=== PATIENT | male | born 1940 | race Caucasian/White ===

== ENCOUNTER 2016-07-22 11:27 | Emergency (ER) | payer MEDICARE, OTHER ==
[~2016-07-22] VITALS: Ht 172.7 cm; Wt 72.7 kg
[2016-07-22 11:27] VITALS: BP 139/51; PULSE 118; RESP 18; O2SAT 93
[~2016-07-22 11:27] MED LIST: ASPI-628 PO; CLON0.1T PO; FOSI20TA3 PO; METF500T4 PO; PRAV10TA2 PO
--- NOTE | 2016-07-22 11:57 | ED.REPORT ---
HPI-General Illness Date of Service Jul 22, 2016 ED Provider: Dennys Mitchell DO The patient is a 75 year old male w/ a hx of DM on metformin and HTN who presents to the ED via EMS accompanied by his due to weakness onset this morning. Per his , he going to the bathroom every hour last night and was "completely out of it." He collapsed on the porch this morning and his called EMS. He perked up a little bit after receiving fluids. Associated symptoms are confusion, fever, weakness, chills, shakes, slight discomfort with urination and mild incontinence for the last year. He is tachycardic. Denies cough, sinus pain, congestion, back pain, rashes or sores. He has never had any bladder problems before. His PCP is Dr. Pritchard at [facility]. Nursing Notes Stated Complaint: ALTERED MENTAL STATUS Chief Complaint: General Complaint Nursing Notes Reviewed: Yes Allergies: Coded Allergies: gemfibrozil (Verified Allergy, Severe, 07/17/14) ERECTILE DYS PER H&P Scheduled Aspirin (Aspir 81) 81 Mg Tablet.dr 325 MG PO DAILY Clonidine (Clonidine) 0.1 Mg Tablet 0.2 MG PO HS Metformin (Metformin) 500 Mg Tablet 500 MG PO BIDWM take 500 mg in the am and 1,000 mg at night Pravastatin (Pravastatin) 10 Mg Tablet 10 MG PO HS Sulfamethoxazole/Trimeth 800-160 mg (Bactrim DS) 1 Each Tablet 1 TABLET PO BID Miscellaneous Medications Fosinopril Sodium (Fosinopril Sodium) 20 Mg Tablet 20 MG PO General Time Seen by MD: 11:29 Chief Complaint Weakness Hx Obtained From: Patient Arrived By: Ambulance Sudden in Onset?: Yes Onset Occurred: 1 - 4 hours ago Symptom Duration: Since onset Severity: Current: No pain currently Past Medical History Past Medical History Reports: Diabetes mellitus, Hypertension Past Surgical History denies Smoking History Never Smoker Social History Alcohol Use: 1-3 per week Other Social History: , Local resident Ambulatory Status Independent Review of Systems Full Review of Systems Constitutional: Reports: Chills, Fever, Weakness - generalized Ears / Nose / Throat: Denies: Nasal congestion, Sinus problem Respiratory: Denies: Non-productive cough Male: Reports Dysuria, Reports Incontinence Musculoskeletal: Denies: Back pain Skin: Denies Rash Neurologic: Reports: Shaking Psychiatric: Reports: Confusion Complete sys rev & neg: except as marked. Physical Exam Vital Signs Initial VS: Reviewed Extremities: Vascular intact, Neuro intact, No swelling, No tenderness General/Constitutional: Awake, Alert, No acute distress, Cooperative Head / Eyes: Atraumatic, Normocephalic, PERRL, EOMI Mouth: Positive: Mucous membranes dry Neck: Atraumatic, Supple, No meningismus, Full range of motion Respiratory / Chest: Atraumatic, Breath sounds NL, Breath sounds = bilat, No respiratory distress Cardiovascular: Regular rhythm Heart Rate / Rhythm: Positive: Tachycardia (about 120) Abdomen: Atraumatic, Soft, Non-tender, No guarding, No rebound, No distention Skin: Atraumatic, Color NL Rash / Lesion Notes: skin is warm to touch Interpretation & Diagnostics Lab Results Interpretation Result Diagram: 07/22/16 1210 07/22/16 1210 Test 07/22/16 11:45 07/22/16 12:10 07/22/16 12:45 07/22/16 14:04 Urine Color Yellow (YELLOW) Urine Appearance Hazy (CLEAR,HAZY) Urine pH 5.5 (5.0-8.0) Urine Specific Sheldon 1.020 (1.003-1.035) Urine Protein 30mg/dL (NEG,TRACE) Urine Glucose (UA) 500mg/dL (NEGATIVE) Urine Ketones 40mg/dL (NEGATIVE) Urine Occult Blood Moderate (NEGATIVE) Urine Nitrite Positive (NEGATIVE) Urine Bilirubin Negative (NEGATIVE) Urine Urobilinogen Normalmg/dL (NORMAL) Urine Leukocyte Esterase Trace (NEGATIVE) Urine RBC 3-10/hpf (0-2) Urine WBC 11-50/hpf (0-5) Urine Epithelial Cells Occasional/hpf (NONE-MOD) Urine Crystals None seen (NONE SEEN) Urine Bacteria Moderate/hpf (NONE-FEW) Urine Hyaline Casts None/lpf (NONE) Urine Granular Casts None seen (NONE SEEN) Urine Waxy Casts None seen (NONE SEEN) Urine Red Blood Cell Casts None seen (NONE SEEN) Urine White Blood Cell Casts None seen (NONE SEEN) Urine Mucus Present (None Seen) Urine Trichomonas None seen (NONE SEEN) Urine Yeast None (NONE SEEN) Urinalysis Comment None Urine Culture Reflexed Indicated Hold Urine Received (Received) White Blood Count 9.9th/mm3 (3.8-10.1) Red Blood Count 4.61mil/mm3 (4.40-5.80) Hemoglobin 12.9g/dL (13.8-17.2) Hematocrit 38.7% (41.0-50.0) Mean Corpuscular Volume 83.9fL (81-100) Mean Corpuscular Hemoglobin 28.0pg (27.0-35.0) Mean Corpuscular Hemoglobin Concent 33.3% (32.0-37.0) Red Cell Distribution Width 13.9% (12.3-15.4) Platelet Count 164bil/L (150-400) Neutrophils (%) (Auto) 87.1% (40-74) Lymphocytes (%) (Auto) 6.5% (14-46) Monocytes (%) (Auto) 5.6% (4-12) Eosinophils (%) (Auto) 0.1% (0-5) Basophils (%) (Auto) 0.4% (0-3) Sodium Level 132mEq/L (134-144) Potassium Level 4.3mEq/L (3.5-5.2) Chloride Level 90mEq/L (97-108) Carbon Dioxide Level 18mmol/L (18-29) Blood Urea Nitrogen 21mg/dL (8-27) Creatinine 0.89mg/dL (0.76-1.27) Estimat Glomerular Filtration Rate 89mL/min (>59) Glucose Level 329mg/dL (60-99) Calcium Level 10.4mg/dL (8.5-10.1) Magnesium Level 1.3mg/dL (1.6-2.6) Total Bilirubin 1.0mg/dL (0.0-1.2) Aspartate Amino Transf (AST/SGOT) 24U/L (0-50) Alanine Aminotransferase (ALT/SGPT) 16U/L (0-44) Alkaline Phosphatase 97U/L (25-160) Troponin T < 0.010ug/L (0.0-0.011) Total Protein 7.4g/dL (6.4-8.4) Albumin 4.2g/dL (3.4-5.0) Lactic Acid Level 1.1mmol/L (0.4-2.0) Hold Purple Top Tube Received (Received) Hold Blue Top Tube Received (Received) Hold Red Top Tube Received (Received) Hold Strong Top Tube Received (Received) ECG Interpretation ECG Interpretation: ST depression inverted T waves diffuse leads prolonged QT interval Time: 13:20 Interpreted by: ED physician Rhythm / Conduction: Tachycardia (104) X-Ray Chest Interpretation Chest Xray Interpretation: IMPRESSION: No acute disease Dictated by: Mickey Villarreal M.D. on 07/22/2016 at 13:08 Approved by: Mickey Villarreal M.D. on 07/22/2016 at 13:09 View: Portable Interpretation / Wet Read by: Interpret - Radiologist Re-Eval/Medical Decision Med Decision/Clinical Course 75-year-old male with a history of diabetes and hypertension presents via EMS after becoming very weak this morning and confused. Upon EMS arrival IV fluids were initiated and this seemed to help him feel significantly better, however he did meet criteria for sepsis just with his vitals upon arrival. He is not confused at the time of my evaluation in the ER but is febrile and tachycardic. He was treated with Tylenol and more IV fluids and he continued to feel better to the point where he was feeling at baseline. His urine is consistent with a UTI. He had a bladder scan performed which demonstrated approximately 300 mL's and the bladder the patient was able to urinate 200 mL's after the bladder scan so I do not feel he has significant obstruction to require catheterization. He does not describe any lower urinary tract symptoms prior to last day or 2 so I do not feel that Flomax is necessary. I did consider hospital admission but given the patient's vital signs returned to normal, he is not confused, and he is feeling quite well I chose to discharge him home. Patient and his are in agreement with this plan. He received ceftriaxone IV while in the ER and is discharged home with Bactrim twice daily. I explained to him that his elevated blood sugars despite his usual medicines are related to an infection. He will continue metformin as before. I have instructed him to return should he feel that his symptoms are worsening including dizziness, lightheadedness, worsening weakness, or any other new symptom that was concerning to him. Counseled Regarding: Diagnosis, Lab results, Need for follow-up, When/why to return to ED Discharge & Departure Primary Impression: UTI (urinary tract infection) Urinary tract infection type: site unspecified Hematuria presence: without hematuria Qualified Code: N39.0 - Urinary tract infection, site not specified Additional Impressions: Sepsis Sepsis type: sepsis due to unspecified organism Qualified Code: A41.9 - Sepsis, unspecified organism Hyperglycemia Disposition: Home Discharge Condition All VS Reviewed: Yes Condition: Stable Additional Instructions: You have a urinary tract infection. I am giving you a course of antibiotics, Bactrim twice daily for a week. Drink plenty of fluids and stay well hydrated. Return to the Emergency Department for any new or worsening symptoms including weakness, high fevers or confusion. I hope you feel better soon! Referrals: Bebeto Pritchard MD (PCP) Scribe Attestation Portion of this note were transcribed by Lakia Villa. I, Dr. Mitchell, personally performed the history, physical exam, and medical decision-making: I reviewed and confirmed the accuracy for the information in the transcribed note. Signed by: shalonda Claire, 07/22/16 1300 copies to: Bebeto Pritchard MD, Gary R DO Jul 22, 2016 11:57 Lakia Villa Jul 22, 2016 12:14
[2016-07-22] MEDS ORDERED: 0.9% Sodium Chloride 1,000 ML IV ONE (12:12)
[2016-07-22 12:22] LABS: BASOPHILS % (AUTO) 0.4 % (0-3); EOSINOPHILS % (AUTO) 0.1 % (0-5); MONOCYTES % (AUTO) 5.6 % (4-12); Mean Corpuscular Volume 83.9 fL (81-100); NEUTROPHILS % (AUTO) 87.1 % (40-74); Platelet Count 164 bil/L (150-400)
[2016-07-22 12:35] LABS: TROPONIN T < 0.010 ug/L (0.0-0.011)
[2016-07-22 12:43] LABS: Magnesium 1.3 mg/dL (1.6-2.6)
[2016-07-22] MEDS ORDERED: cefTRIAXone Inj 2,000 MG in Dextrose 5% Minibag Plus 50 ML IV ONE (13:10)
--- NOTE | 2016-07-22 13:10 | DRSVH ---
PROCEDURE: X-RAY CHEST ONE VIEW, PORTABLE ([id number]) INDICATIONS: fever, weakness TECHNIQUE: One view of the chest was acquired. COMPARISON: [facility], CR, XR CHEST 2VW, 04/13/2016, 10:30. FINDINGS: Surgical changes and devices: None. Lungs and pleura: No pleural effusions or pneumothorax. Lungs are clear. Mediastinum: Mediastinal contours appear normal. Heart size is normal. Bones and chest wall: No suspicious bony lesions. Overlying soft tissues appear unremarkable. IMPRESSION: No acute disease Dictated by: Mickey Villarreal M.D. on 07/22/2016 at 13:08 Approved by: Mickey Villarreal M.D. on 07/22/2016 at 13:09
[2016-07-22 14:37] VITALS: BP 104/45; PULSE 96; RESP 15; O2SAT 95
[2016-07-22 14:44] VITALS: BP 110/56
[2016-07-22 15:21] LABS: APPEARANCE,URINE HAZY (CLEAR,HAZY); COLOR,URINE YELLOW (YELLOW); OCCULT BLOOD,URINE MODERATE (NEGATIVE); PH,URINE 5.5 (5.0-8.0); UROBILINOGEN,URINE NORMAL (NORMAL)
[2016-07-22] MEDS ORDERED: SULF1TAB7 PO (15:34)
[2016-07-22 15:58] VITALS: BP 110/56; PULSE 90; RESP 15; O2SAT 95
== END 2016-07-22 16:02 | disposition home or self-care (01) ==
LOC: SED 11:27
DX: N39.0 Urinary tract infection, site not specified (principal); A41.9 Sepsis, unspecified organism; E11.9 Type 2 diabetes mellitus without complications; I10 Essential (primary) hypertension; B96.20 Unspecified Escherichia coli [E. coli] as the cause of diseases classified elsewhere; Z79.82 Long term (current) use of aspirin; Z88.8 Allergy status to other drugs, medicaments and biological substances; Z79.84 Long term (current) use of oral hypoglycemic drugs
CPT/HCPCS: 36415; 51798; 71010; 80053; 81000; 82948; 83605; 83735; 84484; 85025; 87040; 87086; 87088; 87186; 93005; 96365; 99285; J0696; J7030

== ENCOUNTER 2016-08-17 00:07 | Inpatient (IN) | payer MEDICARE, OTHER ==
[~2016-08-17] VITALS: Ht 172.7 cm; Wt 72.8 kg
[2016-08-17] VITALS (13 sets, daily range): BP systolic 75–152; BP diastolic 34–84; PULSE 73–115; RESP 15–24; O2SAT 94–99
[~2016-08-17 00:07] MED LIST changes: +SULF1TAB7 PO
--- NOTE | 2016-08-17 00:41 | ED.REPORT ---
HPI-General Illness Date of Service Aug 17, 2016 ED Provider: Dr. Light. A 75 year old male with a history of HTN and diabetes presents to the ED complaining of fall that occurred earlier this evening. Per , the patient is disoriented and cannot stand without falling over, falling to his right side. He denies hitting his head and he does knows that he is at [facility]. The patient normally keeps well hydrated, but is thirsty now. He denies any nausea, vomiting, chest pain, SOB, abdominal pain, or diarrhea. He reports coming into the ED on 07/22/2016 with similar symptoms. He denies any history of stroke, [place], or Cirrhosis. He quit drinking alcohol in May. Nursing Notes Stated Complaint: DIFFICULTY WALKING,FALLING Chief Complaint: Multiple Trauma/Fall Nursing Notes Reviewed: Yes Allergies: Coded Allergies: gemfibrozil (Verified Allergy, Severe, 07/17/14) ERECTILE DYS PER H&P Scheduled Aspirin (Aspirin) 325 Mg Tablet 325 MG PO DAILY Cinnamon Bark (Cinnamon) 500 Mg Capsule 4 TAB PO DAILY Clonidine (Clonidine) 0.1 Mg Tablet 0.2 MG PO HS Ergocalciferol (Vitamin D2) (Vitamin D2) 2,000 Unit Tablet 2,000 UNIT PO DAILY Metformin HCl (Metformin HCl ER) 1,000 Mg [id number] 1,000 MG PO BID Multivitamin (Multi Vitamin Daily) 1 Each Tablet 1 EACH PO DAILY Pravastatin (Pravastatin) 40 Mg Tablet 40 MG PO DAILY Ubidecarenone (Coq-10) 100 Mg Capsule 100 MG PO BID Scheduled PRN Sildenafil Citrate (Viagra) 100 Mg Tablet 100 MG PO UD PRN PRN ED Miscellaneous Medications Fosinopril Sodium (Fosinopril Sodium) 20 Mg Tablet 20 MG PO General Time Seen by MD: 00:41 Chief Complaint Other (Disoriented) Hx Obtained From: Patient, Spouse Sudden in Onset?: Yes Onset Occurred: 1 - 4 hours ago Recent Healthcare: Recent doctor visit (Patient visited ED on 07/22/2016) Similar Sx Previous: No Past Medical History Past Medical History Denies Hx of [place]. Trey Hx of liver Cirrhosis. Patient visited ED on 07/22/2016. Reports: Diabetes mellitus, GERD, Hypertension, Denies: Stroke Past Surgical History None reported. Smoking History Never Smoker Social History Patient quit drinking alcohol in May, the 6 months before that he decreased his rate of alcohol consumption. Alcohol Use: 1-3 per week Other Social History: , Local resident Ambulatory Status Independent Review of Systems Disoriented. Full Review of Systems Respiratory: Denies: Shortness of breath Cardiovascular: Denies: Chest pain GI: Denies: Abdominal pain, Diarrhea, Nausea, Vomiting Complete sys rev & neg: except as marked. Physical Exam Vital Signs Vital Signs Date Time Temp Pulse Resp B/P Pulse Ox O2 Delivery O2 Flow Rate FiO2 08/17/16 00:58 104 85/36 08/17/16 00:57 103 80/44 08/17/16 00:57 96 78/34 08/17/16 00:34 97 18 87/42 94 Room Air 08/17/16 00:12 36.9 73 15 75/53 94 Room Air Initial VS: Reviewed Neck: Supple, Non-tender, Full range of motion General/Constitutional: Awake, Alert Patient is quite dry. Head / Eyes: Normocephalic, EOMI Face is ok. ENT: Airway patent, Mucous membranes moist Respiratory / Chest: Atraumatic, Breath sounds NL, Breath sounds = bilat, No respiratory distress, No rales, No rhonchi, No wheezing Cardiovascular: Heart rate NL, Regular rhythm, Heart sounds NL, No gallop, No murmurs, No rubs Abdomen: No guarding, No rebound Back: Full range of motion Patient has three distinct abrasions on his back. He has no other trauma. Skin: Warm, Dry Cerebellar is abnormal on right. Patient has marked searching with right finger. Left arm is a little vauge, but it does not go through a big process to find the patient's nose. Interpretation & Diagnostics Lab Results Interpretation Result Diagram: 08/17/16 0100 08/17/16 0301 Test 08/17/16 00:40 08/17/16 00:42 08/17/16 01:00 08/17/16 01:26 D-Dimer 2.58mg/L FEU (<0.50) White Blood Count 12.2th/mm3 (3.8-10.1) Red Blood Count 3.71mil/mm3 (4.40-5.80) Hemoglobin 10.3g/dL (13.8-17.2) Hematocrit 31.1% (41.0-50.0) Mean Corpuscular Volume 83.8fL (81-100) Mean Corpuscular Hemoglobin 27.8pg (27.0-35.0) Mean Corpuscular Hemoglobin Concent 33.1% (32.0-37.0) Red Cell Distribution Width 14.5% (12.3-15.4) Platelet Count 160bil/L (150-400) Neutrophils (%) (Auto) 80.2% (40-74) Lymphocytes (%) (Auto) 3.0% (14-46) Monocytes (%) (Auto) 15.8% (4-12) Eosinophils (%) (Auto) 0% (0-5) Basophils (%) (Auto) 0.3% (0-3) Magnesium Level 1.3mg/dL (1.6-2.6) Total Bilirubin 0.6mg/dL (0.0-1.2) Aspartate Amino Transf (AST/SGOT) 12U/L (0-50) Alanine Aminotransferase (ALT/SGPT) 13U/L (0-44) Alkaline Phosphatase 80U/L (25-160) Total Protein 6.1g/dL (6.4-8.4) Albumin 3.2g/dL (3.4-5.0) Acetaminophen Level < 15.0ug/mL Rx (10-25) Alcohols < 10mg/dL (0-10) Lactic Acid Level 1.6mmol/L (0.4-2.0) Test 08/17/16 03:01 Sodium Level 132mEq/L (134-144) Potassium Level 4.6mEq/L (3.5-5.2) Chloride Level 97mEq/L (97-108) Carbon Dioxide Level 20mmol/L (18-29) Blood Urea Nitrogen 25mg/dL (8-27) Creatinine 1.30mg/dL (0.76-1.27) Estimat Glomerular Filtration Rate 57mL/min (>59) Glucose Level 323mg/dL (60-99) Calcium Level 8.5mg/dL (8.5-10.1) ECG Interpretation ECG Interpretation: Rate is 92. JPC. Time: 01:01 Interpreted by: ED physician X-Ray Chest Interpretation Chest Xray Interpretation: IMPRESSION: No pneumonia. Atelectasis bilaterally at the bases. 08/17/2016, 0120 Interpretation / Wet Read by: Wet read Resident CT Chest Interpretation IMPRESSION: Examination compromised by motion artifact. Linear nonocclusive PE noted in one of the right lower lobe pulmonary arterial branches. Otherwise No acute occlusive PE. Atherosclerotic disease. Other findings above. Signed by Herbert Heller M.D. 08/17/2016 0523 AMENDMENT added by Marissa Heller M.D. at 08/17/2016, 0543. Subtle left anterior 6th and 7th rib fracture suggested. Other subtle chronic-appearing post traumatic change in the right rib cage noted. Case discussed with Dr. Light at 08/17/216, 0541. Interpretation / Wet Read by: Interpret - Radiologist Re-Eval/Medical Decision Med Decision/Clinical Course 75-year-old presents with altered mental status and multiple falls. CT of the cranium is negative, as is his neck. However his sodium is quite low, his blood pressure is persistently low, he is azotemic, and hypomagnesemic. He is moderately dehydrated and clinically dry appearing. A d-dimer is elevated and a CT angios shows a nonocclusive small clot in the lower right, which is clearly not the source of his syncopal episodes. He is admitted for completion of rule out protocol, replenishment of sodium and fluid, and further evaluation as clinical situation develops. Source of Hx: Old records Time of Eval: 00:52 Re-Evaluation/Progress Note: Rechecked patient and brought them water to drink. Consultation : Referral / Consult Name: Gabino Jones MD Consulted With: Hospitalist Call Returned at: 02:51 Ice Handler: Will see patient Note: Discussed patient case with Dr. Jones who will see the patient and accepts patient admit. Counseled Regarding: Diagnosis, Lab results Discharge & Departure Primary Impression: Hyponatremia Additional Impressions: Dehydration Syncope Syncope type: unspecified Qualified Code: R55 - Syncope and collapse Pulmonary embolus Pulmonary embolism type: other Chronicity: acute Acute cor pulmonale presence: without acute cor pulmonale Qualified Code: I26.99 - Other pulmonary embolism without acute cor pulmonale Hypotension Hypotension type: other hypotension type Qualified Code: I95.89 - Other hypotension Disposition: ADMITTED TO HOSPITAL Discharge Condition All VS Reviewed: Yes Condition: Improved Referrals: Bebeto Pritchard MD (PCP) Scribe Attestation Portions of this note were transcribed by Leobardo Taveras. I, Dr. Light personally performed the history, physical exam and medical decision-making; I reviewed and confirmed the accuracy of the information in the transcribed note. Signed by: Nathan Oconnor, 08/17/2016 0643. copies to: Bebeto Pritchard MD, Christopher W MD Aug 17, 2016 00:41 Leobardo Taveras Aug 17, 2016 00:53
[2016-08-17] MEDS ORDERED: 0.9% Sodium Chloride 1,000 ML IV ONE ×2 (00:54→02:20)
[2016-08-17 01:13] LABS: BASOPHILS % (AUTO) 0.3 % (0-3); EOSINOPHILS % (AUTO) 0 % (0-5); MONOCYTES % (AUTO) 15.8 % (4-12); Mean Corpuscular Hemoglobin 27.8 pg (27.0-35.0); Mean Corpuscular Volume 83.8 fL (81-100); NEUTROPHILS % (AUTO) 80.2 % (40-74); Platelet Count 160 bil/L (150-400)
[2016-08-17 01:35] LABS: Magnesium 1.3 mg/dL (1.6-2.6)
[2016-08-17] MEDS ORDERED: 0.9% Sodium Chloride 1,000 ML IV SCH ×2 (02:55→03:20)
[2016-08-17] MEDS ORDERED: Polyethylene Glycol (PEG) 17 Gm Powder PO PRN (02:55)
[2016-08-17] MEDS ORDERED: Ondansetron 2 mg/mL 2 mL Inj IVPUSH PRN (02:55)
[2016-08-17] MEDS ORDERED: Glucose 40% Oral Gel 15 Gm Tube PO PRN ×2 (03:40→10:50)
--- NOTE | 2016-08-17 04:02 | PCM.HPMED ---
Subjective Date of Service Aug 17, 2016 Primary Provider: Admitting Physician: Gabino Jones MD Primary Care Physician: Bebeto Pritchard MD Attending Physician: Gabino Jones MD Admit Status: From the Emergency Department Chief Complaint: Generalized weakness, dizziness, fell this evening, intermittent dysuria, rigors and chills, subjective low-grade fever 100 History of Present Illness: This is a pleasant 75 Y/O M with past medical history of type II diabetes, hypertension, hypercholesterolemia, and history of alcohol but quit May of this year. He presented to the ED complaining of a fall that occurred earlier this evening. Patient's is present in room and is assisting with history. Patient describes generalized weakness, and dizziness that he describes as feeling disoriented and inability to stand without feeling as though he is falling over. Patient fell to his right side, but denied hitting his head. Associated symptoms include intermittent periods of dysuria, increased thirst, chills, rigors, multiple voids up to 20 times throughout the day, subjective low -grade fever of 100F. Of note patient was seen in the the ED on 07/22/2016 with very similar symptoms. At that time he was diagnosed with urinary tract infection and given IV ceftriaxone and discharged home on by mouth Bactrim. He denies any nausea, vomiting, chest pain, SOB, abdominal pain, or diarrhea, constipation, cough, colds, hematuria, hematochezia, melena, history of thyroid disease, allergies, sick contacts. Patient received 4 L IV normal saline in the ED. He was admitted for hypotension resulting in fall and further workup. EKG showed: Normal sinus rhythm with a rate of 92, normal axis, normal LA interval normal QT and QTc interval, no ST segment or T-wave changes, otherwise normal-appearing EKG. CT brain and CT cervical spine pending radiological read Chest x-ray with bilateral area hilar calcifications wet read by this physician Chemistry panel: Sodium 126, potassium 4.5, chloride 88, carbon dioxide 25, BUN 30, creatinine 1.43, baseline creatinine 0.83 on 07/22/2016, glucose 376, magnesium low at 1.3, lactic acid 1.6, hemoglobin A1c ordered and pending Gram: White blood cell count 12.2, neutrophil percent 80.2 with left shift, monocytes 15.8%, hemoglobin/hematocrit 10.3/31.1 Dimer elevated at 2.58 Blood Cultures ordered and pending Review of Systems: A comprehensive review of systems was conducted and was negative except as mentioned in history of present illness. Allergies Coded Allergies: gemfibrozil (Verified Allergy, Severe, 07/17/14) ERECTILE DYS PER H&P Home Medications Aspirin Tablet 325 MG PO DAILY Clonidine (Clonidine) 0.1 Mg Tablet 0.2 MG PO HS Metformin (Metformin) 1000 MG PO BIDWM Pravastatin (Pravastatin) 40 Mg Tablet 40 MG PO HS Fosinopril Sodium (Fosinopril Sodium) 20 Mg Tablet 20 MG PO Januvia 50 mg tablet daily (increased from 25 mg on 08/17/2016) Vitamin D Viagra when necessary PMH Diabetes mellitus, Hypertension, Essential tremor for years Surgical History Vasectomy Family History Mom obesity, coronary artery disease Daughter diabetes mellitus Social History Hx Alcohol Use: Yes (not since first of year 05/2016) Hx Substance Use: No Hx Tobacco Use: No Smoking Status: Never Smoker Living Arrangement: with Family ( is Sweta [phone], cell ) Exam Vital Signs Vital Sign - Last Date Time Temp Pulse Resp B/P Pulse Ox O2 Delivery O2 Flow Rate FiO2 08/17/16 03:30 107/48 08/17/16 00:58 104 08/17/16 00:34 18 94 Room Air 08/17/16 00:12 36.9 Intake and Output 08/16/16 08/16/16 08/17/16 Cumulative From/Thru 15:00 23:00 07:00 08/17/16 00:12 - 08/17/16 03:21 Intake Total 4000 ml 4000 ml Balance 4000 ml 4000 ml Intake IV Total 4000 ml 4000 ml Exam General: Alert and oriented 3, in no acute distress, lying in reverse Trendelenburg in bed, speaking in full sentences HEENT: NC/AT, eyes, PERRLA, EOMI, neck, soft supple, no adenopathy, no JVD, no masses, no thyromegaly, throat mucous membranes pink and dry, no erythema, no exudates, no tonsillar swelling, no uvular deviation. Lungs: CTAB all kim, no wheezes, no rhonchi, no crackles, no adventitious lung sounds, no use of accessory muscles of respiration, good air movement, good respiratory effort. Heart: Regular rate and rhythm, no murmur, S1-S2 present, no rub, no click, no distant heart sounds, Abdomen: Soft, nontender, nondistended, somewhat protuberant, liver edge 2-3 cm below the costal margin, bowel sounds active, no rebound, no guarding, Genitourinary: No CVA tenderness, no suprapubic tenderness, no Gardiner catheter, Extremities: Muscle strength, 5 out of 5 upper/lower extremity and symmetric laterally, pulses equal and symmetric upper/lower extremity including radial and dorsalis pedis, no edema Neurologic: Grossly neurologically intact, speaking in full sentences, no focal neurological signs, [id number], [id number] are normal, Skin: Warm, dry, no rashes Psychiatric: Mood affect are congruent and appropriate. Lab and Diagnostics Result Diagram: 08/17/169908/17/1699 Assessment & Plan This is a pleasant 75-year-old male with past medical history of diabetes and hypertension, and alcohol use up until May of this year who presented with generalized weakness, dizziness and fall with associated increased thirst rigors chills and active fever 100. P patient was found to have hyponatremia and hypochloremia hypomagnesemia elevated d-dimer and a leukocytosis with left shift. Patient was admitted to the hospital for hypertension resulting in a fall for further workup. # Hypotension, present on admission, active - Differential diagnosis includes orthostatic hypotension/dehydration secondary to decreased by mouth intake versus poorly controlled diabetes with osmotic diuresis, medication-induced patient takes clonidine 0.2 mg, patient takes lisinopril 20 mg, cardiac, autonomic dysregulation, toxin induced, sepsis secondary to bacteremia or urinary tract infection, versus GI bleed, - Patient complained of 3-4 week history of generalized weakness, dizziness, intermittent dysuria, increased thirst, history of multiple voids up to 20 times per day, subjective low-grade fever of 100 Fahrenheit. With associated chills and rigors for the past week. - In the ED vital signs: Temperature 36.9, pulse 73, respirations 15, 94% on room air. - Orthostatics: Right arm blood pressure supine 87/42, right arm sitting 80/44, right arm standing 85/36. - Patient received 4 L normal saline in the ED and reported improvement in his symptoms - D-dimer 2.58 - Lactic acid 1.6 - EKG was - Chest x-ray ordered and pending - CT brain ordered and pending - CT cervical spine ordered and pending - CT angiogram chest to rule out PE - We will trend troponin # Acute leukocytosis, present on admission, active - White blood cell count 12.2, with left shift polys 80.2% - Blood Cultures ordered and pending - UA with culture if indicated ordered and pending - We will hold on starting IV antibiotics pending culture results and UA # Anemia, Chronicity unknown, present on admission, active - H/H 10.3/31.1 - We will continue to monitor - Stool guaiac - We will consider iron studies to include ferritin # Hypochloremic hyponatremia, present on admission, active - Sodium 126, chloride 88 - He received 4 L normal saline - We will repeat CMP ordered and pending # Acute kidney injury, present on admission, active -Likely secondary to dehydration, and chronic poorly controlled diabetes resulting osmotic diuresis, polyuria and dehydration - Creatinine 1.43 - Patient's baseline creatinine is 0.83 on 07/22/2016 - IV fluids normal saline as above - We will continue to monitor creatinine level # Dysuria, present on admission, active - She reported having intermittent dysuria - UA/culture if indicated ordered and pending - Patient was recently treated for urinary tract infection 1 month ago in the ED and received a signal dose of ceftriaxone and was discharged on by mouth Bactrim twice a day #Hyperglycemia in a known type II diabetic, present on admission, active - Patient on metformin at home 1000 mg twice a day, will hold metformin for now - Patient takes Januvia 50 mg daily. Medication was recently increased from 25 mg to 50 mg on 08/15/2016 - We will continue to monitor blood glucoses - Hemoglobin A1c ordered and pending - Diabetic diet - We will start low-dose correctional scale insulin while in-house # Hypomagnesemia - Magnesium level I.3 - We will plan to replete Chronic problems: #Hypertension - Patient takes clonidine 0.2 mg daily - Patient is on Fosamax and appropriately milligrams daily - We will plan to hold clonidine for now # Diabetes mellitus type II - Hold metformin - Hold Januvia - Start low-dose correctional scale insulin #Hyperlipidemia - Continue pravastatin 40 mg daily - Continue aspirin 325 mg Disposition: Admitted to in patient service with expected length of stay greater than 2 days, secondary to severity of presenting symptoms, treatment plan, complexity of clinical work up, and risk of adverse events. CODE STATUS: Full code PCP: Dr. Macho Truong [facility] Ronald Joseph DVT PE prophylaxis: Enoxaparin Contact: Sweta(patient's ), - H, Pain Evaluation: Adequate Pain Control VTE Prophylaxis: Sub-Q Enoxaparin Resuscitation Status: CPR: Attempt Resuscitation Attending Statement The patient was seen and examined together with Dr Johansen on 08/17/2016 and I agree with the history, exam and plan as outlined in the note above. Robinson Johansen DO Aug 17, 2016 04:02 Gabino Jones MD Aug 17, 2016 05:22
[2016-08-17] MEDS ORDERED: SILD100T PO (04:31)
[2016-08-17] MEDS ORDERED: MULT-1018 PO (04:31)
[2016-08-17] MEDS ORDERED: ERGO2000 PO (04:31)
[2016-08-17] MEDS ORDERED: PRAV40TA PO (04:31)
[2016-08-17] MEDS ORDERED: UBID100C16 PO (04:31)
[2016-08-17] MEDS ORDERED: ASPI325T32 PO (04:31)
[2016-08-17] MEDS ORDERED: CINN500C14 PO (04:31)
[2016-08-17] MEDS ORDERED: METF-778 PO (04:31)
--- NOTE | 2016-08-17 06:06 | NUR ---
Admission Pt arrived via wheelchair. He was notably tremulous. Difficult to obtain blood pressure of blood sugar due to shaking. Skin mottled Pt stated "he didn't get this bad at home" Breathing labored. HR tach 110. Given warm blankets. Reported above signs to night doctor Temp initally 36.4. Now 37.4 Requested tylenol order at bedside.
[2016-08-17] MEDS ORDERED: Insulin GLARgine 100 Unit/mL Syringe SUBQ ONE (06:15)
--- NOTE | 2016-08-17 07:58 | DRSVH ---
PROCEDURE: CT BRAIN WITHOUT CONTRAST ([id number]) INDICATIONS: falls TECHNIQUE: Noncontrast 4.5 mm thick angled axial sections acquired from the foramen magnum to the vertex, with c oronal reformats. COMPARISON: None. FINDINGS: Image quality: Excellent. CSF spaces: Basal cisterns are patent. No extra-axial fluid collections. The ventricles are symmet robert in size and shape. Brain: No intracranial bleeds or masses. There is mild to moderate cerebral volume loss for age, wi th resultant ventricular and sulcal prominence. There are mild periventricular and deep white matter chronic small vessel ischemic changes. There is intracranial internal carotid artery atherosclerosi s. Skull and face: Calvarium and visualized facial bones appear intact, without suspicious lesions. Sinuses: Visualized sinuses and mastoids are clear. IMPRESSION: 1. No acute intracranial abnormalities. 2. Cerebral volume loss and chronic microvascular ischemic changes. No significant discrepancy with the shift production supervisor radiology preliminary report. Dictated by: Carlie Phan M.D. on 08/17/2016 at 7:56 Approved by: Carlie Phan M.D. on 08/17/2016 at 7:57
[2016-08-17] MEDS ORDERED: Insulin LISPRO 300 Unit/3 mL Inj SUBQ SCH (08:00)
[2016-08-17] MEDS: COENZYME Q10 PO SCH ×2 (08:30→20:30)
--- NOTE | 2016-08-17 08:43 | DRSVH ---
PROCEDURE: X-RAY CHEST ONE VIEW, PORTABLE ([id number]) INDICATIONS: altered ms, falls TECHNIQUE: One view of the chest was acquired. COMPARISON: [facility], CR, XR CHEST 1VW (PORTABLE), 07/22/2016, 12:12. FINDINGS: Surgical changes and devices: None. Lungs and pleura: No pleural effusions or pneumothorax. Lungs are clear. Mediastinum: Mediastinal contours appear normal. Heart size is normal. Bones and chest wall: No suspicious bony lesions. Overlying soft tissues appear unremarkable. IMPRESSION: No acute disease. Dictated by: Mickey Villarreal M.D. on 08/17/2016 at 8:40 Approved by: Mickey Villarreal M.D. on 08/17/2016 at 8:41
--- NOTE | 2016-08-17 09:15 | DRSVH ---
PROCEDURE: CT ANGIO CHEST PULMONARY EMBOLISM ([id number]) INDICATIONS: syncope and elevated dimer TECHNIQUE: After the administration of intravenous contrast, 2 mm thick sections acquired from the pulmonary api velvet to the posterior costophrenic angles. 3-dimensional maximum intensity projection (MIP) coronal a nd sagittal reformats were then acquired through the thorax. For radiation dose reduction, the follo wing was used: automated exposure control, adjustment of mA and/or kV according to patient size. COMPARISON: None. FINDINGS: Image quality: Excellent. Pulmonary arteries: There is a small filling defect in the right posterior basal segmental artery cordoba spicious for a small pulmonary embolus. Pulmonary arteries are normal in size. Lungs and pleura: Lungs are clear. No pleural effusions or pneumothorax. Central and peripheral ai rways are patent. Mediastinum: Heart size is normal, without pericardial effusion. Mildly enlarged paratracheal and AP window lymph nodes are present, measuring up to 1 cm. Thoracic aorta is normal in caliber and enhanc ement. Esophagus is normal in caliber. There is a moderate-sized hiatal hernia. There is possible C oncentric thickening at the gastroesophageal junction. Bones and chest wall: No suspicious bony lesions. Ribs and thoracic spine appear intact throughout. Thyroid gland is normal. No axillary or supraclavicular adenopathy. Abdomen: Visualized upper abdominal solid organs appear normal in the early arterial phase of enhanc ement. IMPRESSION: 1. Possible small pulmonary embolus in the right posterior basal segmental artery. 2. There is a moderate-sized hiatal hernia. There is concentric thickening at the gastroesophageal ju nction. Recommend esophagram or upper endoscopy for further evaluation. 3. Mildly enlarged particularly lymph nodes. This finding is nonspecific and requires clinical corre lation and follow up. Dictated by: Carlie Phan M.D. on 08/17/2016 at 9:03 Approved by: Carlie Phan M.D. on 08/17/2016 at 9:14
--- NOTE | 2016-08-17 09:15 | DRSVH ---
PROCEDURE: US VENOUS LEG DUPLEX BILATERAL INDICATIONS: evaluate for dvt TECHNIQUE: Real-time imaging, as well as color and pulse Doppler interrogation, were performed of the deep veins of both legs from the inguinal ligament to the popliteal fossa. COMPARISON: None. FINDINGS: The deep veins are normally compressible, and free of intraluminal thrombus. Color and pu lse Doppler demonstrate normal phasic intravascular flow. There is normal augmentation response to d istal compression maneuver. IMPRESSION: No DVT film bilaterally over the lower extremities. Dictated by: Geovany Anthony M.D. on 08/17/2016 at 9:13 Approved by: Geovany Anthony M.D. on 08/17/2016 at 9:14
--- NOTE | 2016-08-17 09:20 | NUR ---
Mentation Pt now completely alert and cooperative. Agrees not to try to get OOB w/o assistance. Able to use call light appropriately. Slightly tremulous for am blood sugar check, otherwise steady.
--- NOTE | 2016-08-17 09:22 | DRSVH ---
PROCEDURE: CT CERVICAL SPINE WITHOUT CONTRAST ([id number]) INDICATIONS: 75 year-old man with fall. TECHNIQUE: Noncontrast 3 mm thick sections acquired from the skull base to the T4 level. Sagittal and coronal r eformats were then constructed. For radiation dose reduction, the following was used: automated exp osure control, adjustment of mA and/or kV according to patient size. COMPARISON: None. FINDINGS: Image quality: Excellent. Bones: No fractures or dislocations. Visualized superior ribs are intact. Grade 1 anterolisthesis at C5 over C6 is present. There is mild degenerative disc disease scattered in the cervical spine. Th ere is bilateral facet arthropathy, most severe at C3-C4 and C4-C5 on the right, and C2-C3 and C3-C4 on the left. Soft tissues: Prevertebral soft tissues are normal in thickness. No paravertebral hematomas. No ap ical pneumothoraces. IMPRESSION: 1. No acute traumatic injury to cervical spine. 2. Mild degenerative disc disease and severe bilateral facet arthropathy in cervical spine. No significant discrepancy with the bridge club manager radiology preliminary report. Dictated by: Carlie Phan M.D. on 08/17/2016 at 9:15 Approved by: Carlie Phan M.D. on 08/17/2016 at 9:21
[2016-08-17] MEDS ORDERED: SITA25TA5 PO (09:45)
--- NOTE | 2016-08-17 10:39 | PCM.PNMED ---
Subjective Date of Service Aug 17, 2016 Subjective Overall feels a bit better this AM. Patient blood sugars have been over 300 for over a months with sig poluria and I suspect patient was fluid depleted and on bp med, thus the syncope and low bp. We need to add insulin. Exam Vital Signs Vital Sign - Last Date Time Temp Pulse Resp B/P Pulse Ox O2 Delivery O2 Flow Rate FiO2 08/17/16 09:15 102 08/17/16 05:45 37.4 24 131/81 94 Room Air Intake and Output 08/16/16 08/16/16 08/17/16 Cumulative From/Thru 15:00 23:00 07:00 08/17/16 00:12 - 08/17/16 06:01 Intake Total 4000 ml 4000 ml Output Total 500 ml 500 ml Balance 3500 ml 3500 ml Intake IV Total 4000 ml 4000 ml Output Urine Total 500 ml 500 ml Exam Eyes; aurelia eom intact ENMT; adequate hydration, no lesions CV; S1S2 present, soft systolic murmur Resp; Clear anteriorly GI; Soft, non tender and benign Skin; dry, no rashes Neuro; 2-12 intact, no motor or sensory defects noted Lab and Diagnostics Result Diagram: 08/17/16 0100 08/17/16 0301 Assessment & Plan This is a pleasant 75-year-old male with past medical history of diabetes and hypertension, and alcohol use up until May of this year who presented with generalized weakness, dizziness and fall with associated increased thirst rigors chills and active fever 100. P patient was found to have hyponatremia and hypochloremia hypomagnesemia elevated d-dimer and a leukocytosis with left shift. Patient was admitted to the hospital for hypertension resulting in a fall for further workup. # Hypotension, present on admission, resolved -probable secondary to being on the dry side, secondary to polyuria, and blood pressure meds -control diabetes continue to hold catapress and fosinopril 2. Uncontrolled type 2 diabetes, POA, active -HbA1C pending -increase lantus basal, to 18 HS -increase correction to medium dose -resume metformin and sitagliptin -teaching and education 3. Possible Pulmonary embolism, POA, questionable -reviewed with radiologist, very small peripheral pul artery, motion artifact present, and questionable weather this is a true embolism. -patient has no chest pain, sob -the syncope has another explanation, and a small pe would not cause syncope -check echo -discussed with patient and the plan we came up with is to not treat for now, watch patient, and consider repeat CTA in about a week to recheck # Anemia, Chronicity unknown, present on admission, active - H/H 10.331.1 - We will continue to monitor - Stool guaiac - We will consider iron studies to include ferritin # Acute kidney injury, present on admission, active -Likely secondary to dehydration, and chronic poorly controlled diabetes resulting osmotic diuresis, polyuria and dehydration - Creatinine 1.43 - Patient's baseline creatinine is 0.83 on 07/22/2016 - IV fluids normal saline at 60 per hour for today # Dysuria, present on admission, active - he reported having intermittent dysuria - UA/culture if indicated ordered and pending - Patient was recently treated for urinary tract infection 1 month ago in the ED and received a signal dose of ceftriaxone and was discharged on by mouth Bactrim twice a day # Hypomagnesemia - Magnesium level I.3 - We will plan to replete Chronic problems: #Hypertension -continue to hold clonidine and fosinopril for now #Hyperlipidemia - Continue pravastatin 40 mg daily - Continue aspirin 325 mg Disposition; pcp is Disposition: Admitted to in patient service with expected length of stay greater than 2 days, secondary to severity of presenting symptoms, treatment plan, complexity of clinical work up, and risk of adverse events. CODE STATUS: Full code [facility] prophylaxis: Enoxaparin Contact: Sweta(patient's ), - C, VTE Prophylaxis: Sub-Q Enoxaparin Resuscitation Status: CPR: Attempt Resuscitation Ward Li MD Aug 17, 2016 10:39 Contact: Sweta(patient's ), - R, VTE Prophylaxis: Sub-Q Enoxaparin Resuscitation Status: CPR: Attempt Resuscitation Ward Li MD Aug 17, 2016 10:39
[2016-08-17] MEDS: Insulin LISPRO 300 Unit/3 mL Inj SUBQ SCH ×3 (12:22→22:42)
--- NOTE | 2016-08-17 12:59 | DRSVH ---
PROCEDURE: US RENAL SONOGRAM INDICATIONS: dysuria, renal failure TECHNIQUE: Real-time scanning was performed of the kidneys and bladder, with image documentation. COMPARISON: None. FINDINGS: Kidneys: Kidneys are normal in size. Right kidney measures 13.0 cm long; left kidney measures 11.4 cm long. Right renal cortical thickness is 1.7 cm; left renal cortical thickness is 1.3 cm. Renal c ortical echotexture is normal. No hydronephrosis or nephrolithiasis. No suspicious solid mass lesio ns. Bladder: Pre-void bladder volume is 304 mL. Post-void residual is 173 mL. Pre-void images demonstr ate no intraluminal masses or stones. Miscellaneous: No free pelvic fluid. IMPRESSION: 1. 173 mL postvoid residual of the urinary bladder. 2. Normal ultrasound appearance of kidneys. No renal stone or hydronephrosis. Dictated by: Carlie Phan M.D. on 08/17/2016 at 12:39 Approved by: Carlie Phan M.D. on 08/17/2016 at 12:47
--- NOTE | 2016-08-17 14:09 | NUR ---
Diabetic Education Provided education regarding sliding scale and drawing up insulin. Pt able to use sliding scale w/o difficulty. Also reports that he used to have a dog with diabetes and is familiar with administering insulin. Encouraged pt to self-administer insulin with dinner.
[2016-08-17 14:35] LABS: APPEARANCE,URINE SLIGHTLY CLOUDY (CLEAR,HAZY); COLOR,URINE YELLOW (YELLOW); PH,URINE 5.5 (5.0-8.0)
[2016-08-17 14:36] LABS: OCCULT BLOOD,URINE LARGE (NEGATIVE); UROBILINOGEN,URINE NORMAL (NORMAL)
[2016-08-17] MEDS: Ampicillin-Sulbactam Inj 1,500 MG in 0.9% Sodium Chloride 50 ML IV SCH ×2 (15:25→20:33)
--- NOTE | 2016-08-17 18:02 | NUR ---
insulin education pt, , and this RN reviewed how to draw up and inject appropriate amounts of Insulin using a sliding scale. pt was able to draw up his dinner time dose of insulin and inject himself without too much difficulty. pt has tremors and this made it somewhat more difficult but pt thinks he can manage. states that she feels comfortable giving shots if needed.
--- NOTE | 2016-08-17 20:00 | NUR ---
ISOLATION Nasopharyngeal viral PCR ordered. Per protocol, pt on droplet precautions until resulted. Addendum: 08/18/16 at 0331 by NEIL FREIRE RN Results negative, off precautions.
[2016-08-17] MEDS ORDERED: Insulin GLARgine 100 Unit/mL Syringe SUBQ SCH (21:00)
[2016-08-18] VITALS (8 sets, daily range): BP systolic 130–148; BP diastolic 72–80; PULSE 86–105; RESP 20–24; O2SAT 93–99
[2016-08-18] MEDS: Ampicillin-Sulbactam Inj 1,500 MG in 0.9% Sodium Chloride 50 ML IV SCH (02:36)
[2016-08-18] MEDS: Alum-Mag Hydrox-Simeth 30 mL Suspension PO PRN (05:42)
--- NOTE | 2016-08-18 05:46 | NUR ---
POSITIVE BLOOD CULTURES Gram negative rods, 1/[address] bottles [address] growth[address] Jones notified, Unasyn changed to Zosyn. Ongoing care.
[2016-08-18] MEDS ORDERED: Piperacillin-Tazo 3.375 Gm Inj 3.375 GM in Dextrose 5% Minibag Plus 50 ML IV ONE (06:00)
[2016-08-18] MEDS: Insulin LISPRO 300 Unit/3 mL Inj SUBQ SCH ×4 (08:09→21:03)
[2016-08-18] MEDS: COENZYME Q10 PO SCH ×2 (08:10→20:30)
--- NOTE | 2016-08-18 10:30 | PCM.PNMED ---
Subjective Date of Service Aug 18, 2016 Subjective Feels better, no more fever from yesterday. Dysuria less, no back pain. Eating OK. Exam Vital Signs Vital Sign - Last Date Time Temp Pulse Resp B/P Pulse Ox O2 Delivery O2 Flow Rate FiO2 08/18/16 09:19 37.4 105 24 131/75 99 Room Air Intake and Output 08/17/16 08/17/16 08/18/16 Cumulative From/Thru 15:00 23:00 07:00 08/17/16 00:12 - 08/18/16 06:13 Intake Total 750 ml 1158 ml 1833 ml 7741 ml Output Total 900 ml 1050 ml 2450 ml Balance 750 ml 258 ml 783 ml 5291 ml Intake Oral 760 ml 960 ml 1720 ml IV Total 750 ml 398 ml 873 ml 6021 ml Output Urine Total 900 ml 1050 ml 2450 ml # Voids 3 3 # Bowel Movements 0 0 Exam Eyes; aurelia eom intact ENMT; adequate hydration, no lesions CV; S1S2 present, soft systolic murmur Resp; Clear anteriorly, no CVA tenderness GI; Soft, non tender and benign Skin; dry, no rashes Neuro; 2-12 intact, no motor or sensory defects noted, alert Lab and Diagnostics Result Diagram: 08/17/16 0100 08/17/16 0301 Assessment & Plan This is a pleasant 75-year-old male with past medical history of diabetes and hypertension, and alcohol use up until May of this year who presented with generalized weakness, dizziness and fall with associated increased thirst rigors chills and active fever 100. P patient was found to have hyponatremia and hypochloremia hypomagnesemia elevated d-dimer and a leukocytosis with left shift. Patient was admitted to the hospital for hypertension resulting in a fall for further workup. 1. Hypotension, present on admission, resolved -probable secondary to being on the dry side, secondary to polyuria, UTI, and blood pressure meds, PE, and or [place] 2. Acute UTI with Bacteremia, present on admission, active - he reported having intermittent dysuria - UA/culture showing gram neg rods - BC with gram neg rods - Patient was recently treated for urinary tract infection 1 month ago in the ED and received a signal dose of ceftriaxone and was discharged on by mouth Bactrim twice a day - Zosyn IV wait results of cultures 3. Uncontrolled type 2 diabetes, POA, active -HbA1C pending -increase lantus basal, to 22 HS -increase correction to medium dose -resume metformin and sitagliptin -patient is new to insulin, teaching 3. Probable Pulmonary embolism, POA, active -reviewed with radiologist, very small peripheral pul artery, motion artifact present, and questionable weather this is a true embolism. -patient has no chest pain, sob -echo however is abnormal showing evidence or prior [place] (no history of this), and moderately dilated RV, hypokenetic RV wall, mod pul hypertension, suggesting possible PE -with echo findings and positive d dimmer patient will be treated for acute PE, coumadin and IV heparin 4; Chronic CHF secondary to systolic dysfunction, poa, active -echo with 45-50% ef, secondary to ischemic cardiomyopathy -initiate ara therapy when able 5. Possible recent Myocardial Infarction, poa, active -IV heparin, statin, asa 81 for now -cardiology consult in AM 6. Anemia, Chronicity unknown, present on admission, active - H/H 10.3/31.1 - We will continue to monitor - Stool guaiac - We will consider iron studies to include ferritin 7. Acute kidney injury, present on admission, active -Likely secondary to dehydration, and chronic poorly controlled diabetes resulting osmotic diuresis, polyuria and dehydration - Creatinine 1.3 today - Patient's baseline creatinine is 0.83 on 07/22/2016 - IV fluids normal saline at 60 per hour for today - consider restarting ara tomorrow 8. Hypomagnesemia - repleat mag Chronic problems: 9.Hypertension -continue to hold clonidine and fosinopril for now 10. Hyperlipidemia - Continue pravastatin 40 mg daily - Continue aspirin 325 mg Disposition; pcp is hanh Martins Disposition: Admitted to in patient service with expected length of stay greater than 2 days, secondary to severity of presenting symptoms, treatment plan, complexity of clinical work up, and risk of adverse events. CODE STATUS: Full code PCP: Dr. Macho Truong [facility] Ronald Mccartney DVT PE prophylaxis: Enoxaparin Contact: Sweta(patient's ), - H, VTE Prophylaxis: Sub-Q Enoxaparin Resuscitation Status: CPR: Attempt Resuscitation Ward Li MD Aug 18, 2016 10:29
[2016-08-18] MEDS: Piper-Tazo 3.375 Gm/50 mL D5W Minibag Plus - Q8H over 4 hrs IV SCH ×4 (14:13→21:46)
--- NOTE | 2016-08-18 14:39 | NUR ---
Social Work-initial assessment: Data: See initial assessment. Pt is a 75 y/o male who was admitted on 08/17/16 for Hypertension, Hyponatremia and Syncope per H&P. Pt's insurance is [employer] and PCP is Garry at [facility]. EMR Reviewed. Pt's readmission score is 3-high risk. SW met with pt andt pt's spouse/DPOA Sweta Cifuentes to discuss discharge planning, SW role explained and Initial Assessment complete. Pt is alert and oriented x3. Pt resides at home with in a mobile home with a ramp to enter where pt remains independent with basic ADLs. Pt has access to a walker and WC if needed. Patient does drive. Pt has no HH or SNF history. Pt has completed DPOA/ advanced directive and a copy is on file. 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 Patient reported that he is 52% service [facility]. No discharge needs identified at this time. Pt's family to provide transport home at discharge. SW provided phone number and plan on white board in room. SW will continue to follow. Plan: Anticipated discharge home via POV when medically ready. No discharge needs identified at this time. SW to continue to follow if any needs arise. Mp Reyes LMSW, BEENA Addendum: 08/18/16 at 1502 by MP REYES SS Amended: Links added.
--- NOTE | 2016-08-18 16:36 | DRSVH ---
[facility] [address] [address] Echocardiogram Report Name: NIDIA PICKETT RStudy Date : 08/18/2016 Height: 68 in Hospital Exam Location: [facility] Weight: 168 lb Gender: Male BSA: 1.9 m2 : 1940 Age: 75 yrs BP: 148/80 mmHg Reason For Study: FAINTING, WEAKNESS Ordering Physician: HOSPITALIST [facility] Performed By: Miguel Younger Referring Physician: Johnna GO Interpretation Summary The left ventricle is normal in size. The ejection fraction is estimated to be 45-50%. There appears to be severe hypokinesis to akinesis of inferior wall, base to mid septum, distal anterolateral and base to mid posterolateral wall. The right ventricle is moderately dilated. Right ventricular systolic function is mild to moderately reduced. The right ventricular free wall is severely hypokinetic. There is mild to moderate tricuspid regurgitation. The right ventricular systolic pressure is estimated at 58 mmHg assuming a right atrial pressure of 15 mm Hg. There is moderate pulmonary hypertension. Procedure: A two-dimensional transthoracic echocardiogram with color flow and Doppler was performed. The study quality was technically good. There is no prior echocardiogram noted for this patient. The patient was in normal sinus rhythm during the exam. Left Ventricle: The left ventricle is normal in size. There is normal left ventricular wall thickness. There is no thrombus. The ejection fraction is estimated to be 45-50%. There appears to be severe hypokinesis to akinesis of inferior wall, base to mid septum, distal anterolateral and base to mid posterolateral wall. Spectral Doppler of the mitral valve is reversed, with an E/A wave ratio < 1.0. Right Ventricle: The right ventricle is moderately dilated. A calcified moderator band is seen in the right ventricle. Right ventricular systolic function is mild to moderately reduced. The right ventricular free wall is severely hypokinetic. Atria: The left atrium is moderately dilated. The right atrium is mildly dilated. The interatrial septum is intact with no evidence for an atrial septal defect. Mitral Valve: There is systolic anterior motion of the chordal apparatus. The mitral valve chordae are thickened and/or calcified. There is mild mitral annular calcification. There is mild mitral regurgitation. Aortic Valve: The aortic valve is trileaflet. The aortic valve is mildly calcified. The aortic valve opens well. There is no aortic valve stenosis. No aortic regurgitation is present. Tricuspid Valve: The tricuspid valve leaflets are thickened and/or calcified, but open well. There is mild to moderate tricuspid regurgitation. The right ventricular systolic pressure is estimated at 58 mmHg assuming a right atrial pressure of 15 mm Hg. There is moderate pulmonary hypertension. Pulmonic Valve: The pulmonic valve is not well seen, but is grossly normal. There is trace pulmonic regurgitation. Great Vessels: The aortic root is normal size. The dimensions of the ascending aorta are normal. The pulmonary artery is normal size. The IVC is dilated (diameter is greater than 2.1 cm) and it collapses less than 50% with a sniff. This suggests a high right atrial pressure of 15 mm Hg. Pericardium/ Pleura There is a trivial pericardial effusion noted. There are no echocardiographic indications of cardiac tamponade. There is no pleural effusion. MMode/2D Measurements & Calculations LVIDd: 4.3 cmLA dimension: 3.5 cm RA long axis: 4.7 cm Ao root diam LVIDs: 3.4 cm FS: 20.4 % LA A2 area: 23.7 cm RA area: 19.5 cm Aortic Jxn: 2.7 cm EPSS: 0.71 cmLA A4 area: 22.9 cm RA vol: 68.1 ml asc Aorta Diam IVSd: 0.85 cmLA length (vol) RA : 35.9 ml/m2 LVPWd Ao Arch Diam (Prox : 0.7cm LA vol: 79.1 ml Trans): 2.9 cm LA vol index IVC diam: 2.2 cm EDV(MOD-sp2) LV owens. diameter/BSA LV sys. diameter/BSA RVD1 (basal) (cm/m^2): 2.3 (cm/m^2): 1.8 : 4.0 cm RVD2 (mid) : 3.8 cm Doppler Measurements & Calculations Ao V2 max MV E max sanjiv MV E/A: 0.68 TR max sanjiv : 157.1 cm/sec : 60.7 cm/sec Med Peak E' Sanjiv : 326.0 cm/sec Ao max PG MV A max sanjiv TR max P.5 mmHg : 9.9 mmHg : 89.5 cm/sec E/E' med: 12.2 PA V2 max: 82.6 cm/sec Ao mean PG Lat Peak E' Sanjiv PA mean P.5 mmHg : 5.9 mmHg PA Accel Time: 0.11 sec E/E' lat: 15.4 E/e' average Pulm A Revs Dur MV A dur: 0.11 sec MV dec time Ao V2 mean PA V2 mean Pulm A Revs Dur - MV A : 0.20 sec : 116.9 cm/sec : 58.3 cm/sec Dur: -0.03 msec Ao V2 VTI PA pr(Accel) : 27.9 cm : 29.1 mmHg Reading Physician:COLIN
[2016-08-18] MEDS ORDERED: Heparin 5,000 Unit/mL Inj IVPUSH ONE (17:15)
[2016-08-18] MEDS: Heparin 25K Unit/500mL 0.45 NS 25,000 UNIT in IV Premix 1 EACH IV SCH (18:12)
--- NOTE | 2016-08-18 18:31 | NUR ---
Heparin Infusion: Cardiac heparin infusion orders clarified w/Dr Li. Heparin PTT drawn for baseline. Heparin bolus 4550u administered, Heparin infusion started at 1000u/hr (20mls/hr). Next Heparin PTT @ 2315 08/18.
[2016-08-18] MEDS ORDERED: Insulin GLARgine 100 Unit/mL Syringe SUBQ SCH ×2 (21:00)
[2016-08-18] MEDS: Insulin GLARgine 100 Unit/mL Syringe SUBQ SCH (21:04)
[2016-08-19] VITALS (8 sets, daily range): BP systolic 127–155; BP diastolic 77–86; PULSE 74–105; RESP 20; O2SAT 93–97
[2016-08-19] MEDS: Heparin 5,000 Unit/mL Inj IVPUSH PRN ×4 (00:32→18:04)
--- NOTE | 2016-08-19 03:09 | NUR ---
ACTIVITY Pt has been ambulating SBA with minimal assistance well. BPs have been 150s-130s/80s, HR continues to be 90s-low 100s. Carlos alarm is no longer on as pt understands to call before getting up, uses call light appropriately. Pt denies dizziness at any time. Hourly rounding.
[2016-08-19 05:31] LABS: BASOPHILS % (AUTO) 0.4 % (0-3); EOSINOPHILS % (AUTO) 0.4 % (0-5); MONOCYTES % (AUTO) 12.9 % (4-12); Mean Corpuscular Hemoglobin 27.9 pg (27.0-35.0); Mean Corpuscular Volume 84.7 fL (81-100); NEUTROPHILS % (AUTO) 79.4 % (40-74); Platelet Count 147 bil/L (150-400)
[2016-08-19] MEDS: Piper-Tazo 3.375 Gm/50 mL D5W Minibag Plus - Q8H over 4 hrs IV SCH ×2 (05:35)
--- NOTE | 2016-08-19 07:57 | PCM.PNMED ---
Subjective Date of Service Aug 19, 2016 Subjective Uneventfull night. No further fever. Dysuria better. Ambulating and eating well. Exam Vital Signs Vital Sign - Last Date Time Temp Pulse Resp B/P Pulse Ox O2 Delivery O2 Flow Rate FiO2 08/19/16 06:29 93 08/19/16 05:02 37.6 20 143/78 93 Room Air Intake and Output 08/18/16 08/18/16 08/19/16 Cumulative From/Thru 15:00 23:00 07:00 08/17/16 00:12 - 08/19/16 05:41 Intake Total 876 ml 328 ml 8945 ml Output Total 400 ml 2850 ml Balance 476 ml 328 ml 6095 ml Intake Oral 876 ml 2596 ml IV Total 328 ml 6349 ml Output Urine Total 400 ml 2850 ml # Voids 6 9 # Bowel Movements 1 1 Exam Eyes; aurelia eom intact ENMT; adequate hydration, no lesions, no bruit CV; S1S2 present, soft systolic murmur, no gallop, no edema Resp; Clear anteriorly, no CVA tenderness GI; Soft, non tender and benign Skin; dry, no rashes Neuro; 2-12 intact, no motor or sensory defects noted, alert Lab and Diagnostics Result Diagram: 08/19/1651608/19/16516 Assessment & Plan This is a pleasant 75-year-old male with past medical history of diabetes and hypertension, and alcohol use up until May of this year who presented with generalized weakness, dizziness and fall with associated increased thirst rigors chills and active fever 100. P patient was found to have hyponatremia and hypochloremia hypomagnesemia elevated d-dimer and a leukocytosis with left shift. Patient was admitted to the hospital for hypertension resulting in a fall for further workup. 1. Hypotension, present on admission, resolved -probable secondary to being on the dry side, secondary to polyuria, UTI, and blood pressure meds, PE, and or [place] 2. Acute UTI with Bacteremia, present on admission, active - he reported having intermittent dysuria - UA/culture showing e coli, resistent to Unisyn - BC with gram neg rods - Patient was recently treated for urinary tract infection 1 month ago in the ED and received a signal dose of ceftriaxone and was discharged on by mouth Bactrim twice a day - due to resistence of urine bug to unisyn and past use of ceftriaxone and bactrim priotr to coming to hospital will change Zosyn to Cefepime 3. Uncontrolled type 2 diabetes, POA, active -HbA1C pending -increase lantus basal, to 22 HS -increase correction to medium dose -resume metformin and sitagliptin -patient is new to insulin, teaching 3. Probable Pulmonary embolism, POA, active -reviewed with radiologist, very small peripheral pul artery, motion artifact present, and questionable weather this is a true embolism. -patient has no chest pain, sob -echo however is abnormal showing evidence or prior [place] (no history of this), and moderately dilated RV, hypokenetic RV wall, mod pul hypertension, suggesting possible PE -with echo findings and positive d dimmer patient will be treated for acute PE, coumadin and IV heparin (await coumadin until seen by Cards) 4; Chronic CHF secondary to systolic dysfunction, poa, active -echo with 45-50% ef, secondary to ischemic cardiomyopathy -start lisinopril 2,5 tomorrow -cardiology consultation 5. Possible recent Myocardial Infarction, poa, active -IV heparin, statin, asa 81 for now -cardiology consult 6. Anemia, Chronicity unknown, present on admission, stable - H/H 10.3/31.1 - We will continue to monitor - Stool guaiac - We will consider iron studies to include ferritin 7. Acute kidney injury, present on admission, resolved -Likely secondary to dehydration, and chronic poorly controlled diabetes resulting osmotic diuresis, polyuria and dehydration - Creatinine .84 today - Patient's baseline creatinine is 0.83 on 07/22/2016 - IV fluids normal saline at 60 per hour for today - consider restarting ara tomorrow 8. Hypomagnesemia - repleat mag Chronic problems: 9.Hypertension -continue to hold clonidine and fosinopril for now 10. Hyperlipidemia - Continue pravastatin 40 mg daily - Continue aspirin 325 mg Disposition; pcp is hanh Martins Disposition: Admitted to in patient service with expected length of stay greater than 2 days, secondary to severity of presenting symptoms, treatment plan, complexity of clinical work up, and risk of adverse events. CODE STATUS: Full code PCP: Dr. Macho Truong [facility] Ronald Mccartney DVT PE prophylaxis: Enoxaparin Contact: Swtea(patient's ), - H, VTE Prophylaxis: Sub-Q Enoxaparin Resuscitation Status: CPR: Attempt Resuscitation Ward Li MD Aug 19, 2016 07:57
[2016-08-19] MEDS: COENZYME Q10 PO SCH ×2 (08:02→20:30)
[2016-08-19] MEDS: Insulin LISPRO 300 Unit/3 mL Inj SUBQ SCH ×4 (08:02→20:37)
[2016-08-19] MEDS ORDERED: 0.9% Sodium Chloride 250 ML ONE (10:29)
[2016-08-19] MEDS: Cefepime Inj 1,000 MG in Dextrose 5% Minibag Plus 50 ML IV SCH ×2 (10:36→20:24)
--- NOTE | 2016-08-19 11:03 | NUR ---
[facility] signed
--- NOTE | 2016-08-19 12:12 | NUR ---
Heparin Infusion: 1115 Heparin PTT result 34.6. 5000u bolus administered and increased infusion to 1500u/hr (30mls/hr). Next Heparin PTT @ 1715. Addendum: 08/19/16 at 1808 by ALESHIA STUART RN 1715 Heparin PTT 36.6. 3000u bolus administered and increased infusion to 1600u/hr (32mml/hr). Next Heparin PTT @2315.
--- NOTE | 2016-08-19 12:41 | PCM.CHPCAR ---
Consult Subjective Date of service Aug 19, 2016 Date of admit Aug 17, 2016 at 03:18 Provider Requesting Consult Requesting Provider: Ward Li MD Primary Care Physician Primary Care Physician: Bebeto Pritchard MD Chief Complaint Troponin elevation History of Present Illness 75 yo M with history of poorly controlled diabetes, hypertension, hyperlipidemia , and prior alcohol abuse admitted with UTI and bacteremia. Patient states that he was in his usual state of health until about a month ago when he started feeling weakness and lightheadedness. He came to our emergency room for evaluation and was diagnosed with UTI and discharged with antibiotics about a month ago. He felt better with antibiotics but not back to his normal self. He continues to have subjective fevers, chills, nausea, and fatigue. Over the past week or so, his fatigue and worse and he started having confusion. He was brought back to our emergency room where he was diagnosed with hypotension from UTI. He received IV fluids and antibiotics and feels much better but not back to his baseline yet. As part of the evaluation, his troponins were checked and they were in the equivocal range. He had an echocardiogram done that showed mildly reduced systolic function with multiple wall motion abnormalities. On history today, patient denies having chest pain today or over the past month. He denies having chest pain ever in his life. Denies dyspnea, palpitations, or heart racing sensations. Review of Systems Review of Systems Per history of present illness and otherwise unremarkable PMH Past Medical History # Diabetes: poorly controlled # HTN # HLD # Alcohol abuse: quit 05/2016 Bedside Blood Glucose: 239 Scheduled Aspirin (Aspirin) 325 Mg Tablet 325 MG PO DAILY (Reported) Cinnamon Bark (Cinnamon) 500 Mg Capsule 2 TAB PO BID (Reported) Clonidine (Clonidine) 0.1 Mg Tablet 0.2 MG PO HS (Reported) Ergocalciferol (Vitamin D2) (Vitamin D2) 2,000 Unit Tablet 2,000 UNIT PO DAILY ( Reported) Fosinopril Sodium (Fosinopril Sodium) 20 Mg Tablet 20 MG PO DAILY (Reported) Metformin HCl (Metformin HCl ER) 1,000 Mg [id number] 1,000 MG PO BID (Reported) Multivitamin (Multi Vitamin Daily) 1 Each Tablet 1 EACH PO DAILY (Reported) Pravastatin (Pravastatin) 40 Mg Tablet 40 MG PO DAILY (Reported) Sitagliptin Phos (Januvia) 25 Mg Tablet 50 MG PO DAILY (Reported) Ubidecarenone (Coq-10) 100 Mg Capsule 100 MG PO BID (Reported) Scheduled PRN Sildenafil Citrate (Viagra) 100 Mg Tablet 100 MG PO UD PRN PRN ED (Reported) Discontinued Medications Aspirin (Aspir 81) 81 Mg Tablet.dr 325 MG PO DAILY (Reported) Metformin (Metformin) 500 Mg Tablet 500 MG PO BIDWM (Reported) take 500 mg in the am and 1,000 mg at night Pravastatin (Pravastatin) 10 Mg Tablet 10 MG PO HS (Reported) Sulfamethoxazole/Trimeth 800-160 mg (Bactrim DS) 1 Each Tablet 1 TABLET PO BID Current Inpatient Medications Current Medications Insulin Glargine 10 unit HS SUBQ; Start 08/17/16 at 21:00; Stop 08/17/16 at 21:00 ; Status DC Insulin Glargine 10 unit HS SUBQ; Start 08/18/16 at 21:00; Stop 08/18/16 at 21:00 ; Status DC Insulin Glargine 18 unit HS SUBQ; Start 08/18/16 at 21:00; Stop 08/18/16 at 21:00 ; Status DC Enoxaparin Sodium 40 mg DAILY SUBQ Last administered on 08/18/16 08:10; Admin Dose 40 MG; Start 08/18/16 at 08:30; Stop 08/18/16 at 17:20; Status DC Metformin HCl 1,000 mg BIDWM PO; Start 08/18/16 at 08:00; Stop 08/18/16 at 08:00; Status DC Sitagliptin Phosphate 50 mg 50 mg DAILY PO Last administered on 08/19/16 08:01; Admin Dose 50 MG; Start 08/18/16 at 08:30 Ampicillin Sodium/ Sulbactam Sodium/ Sodium Chloride 50 ml @ 100 mls/hr Q6 IV Last administered on 08/18/16 02:36; Admin Dose 100 MLS/HR; Start 08/17/16 at 15: 25; Stop 08/18/16 at 05:44; Status DC Melatonin 2 mg 2 mg HS PRN PO Last administered on 08/18/16 21:46; Admin Dose 2 MG; Start 08/18/16 at 04:20 Piperacillin Sod/ Tazobactam Sod/ Dextrose/Water 50 ml @ 12.5 mls/hr Q8H IV Last administered on 08/19/16 05:35; Admin Dose 12.5 MLS/HR; Start 08/18/16 at 14 :00; Stop 08/19/16 at 08:01; Status DC Insulin Glargine 22 unit HS SUBQ Last administered on 08/18/16 21:04; Admin Dose 22 UNIT; Start 08/18/16 at 21:00 Aspirin 81 mg DAILY PO; Start 08/19/16 at 08:30; Stop 08/19/16 at 08:30; Status DC Heparin Sodium (Porcine) Per Protocol for a... PRN PRN IVPUSH Last administered on 08/19/16 06:14; Admin Dose 3,000 UNIT; Start 08/18/16 at 17:15 Lisinopril 2.5 mg 2.5 mg DAILY PO Last administered on 08/19/16 08:22; Admin Dose 2.5 MG; Start 08/19/16 at 08:30 Cefepime HCl/ Dextrose/Water 50 ml @ 12.5 mls/hr Q12 IV Last administered on 10:36; Admin Dose 12.5 MLS/HR; Start 08/19/16 at 08:30 Aspirin 81 mg DAILY PO Last administered on 08/19/16 08:10; Admin Dose 81 MG; Start 08/19/16 at 08:30 Allergies: Coded Allergies: gemfibrozil (Verified Allergy, Severe, 07/17/14) ERECTILE DYS PER H&P Family History Family History Son is healthy. No family history of early heart disease. Social History Hx Alcohol Use: Yes (none since May 2016)Hx Substance Use: NoHx Tobacco Use: No Smoking Status: Never Smoker Living Arrangement: with Family Exam Vital Signs Vital Sign - Last Date Time Temp Pulse Resp B/P Pulse Ox O2 Delivery O2 Flow Rate FiO2 08/19/16 09:22 37.1 98 20 127/77 96 Room Air Intake and Output 08/18/16 08/18/16 08/19/16 Cumulative From/Thru 15:00 23:00 07:00 08/17/16 00:12 - 08/19/16 05:41 Intake Total 876 ml 328 ml 8945 ml Output Total 400 ml 2850 ml Balance 476 ml 328 ml 6095 ml Intake Oral 876 ml 2596 ml IV Total 328 ml 6349 ml Output Urine Total 400 ml 2850 ml # Voids 6 9 # Bowel Movements 1 1 General appearance: No apparent distress, elderly, pleasant, cooperative HEET: Normocephalic atraumatic, no scleral icterus, tongue midline, mucous membranes moist Neck: supple Cardiovascular: RRR, normal S1 and normal S2, no murmurs/ rubs/gallops, PMI nondisplaced, no JVD, no peripheral edema Respiratory: Good aeration, CTAB Abdomen: Soft, nontender, obese, + bowel sounds Neuro: Alert, no facial droop, tongue midline, no gross motor deficits Psych: appropriate affect Skin: no rashes on face, neck, and lower extremities Lab and Diagnostics Result Diagram: 08/19/1651608/19/16516 X-Rays, CTs and MRIs Echo 08/18/2016: The left ventricle is normal in size. The ejection fraction is estimated to be 45-50%. There appears to be severe hypokinesis to akinesis of inferior wall, base to mid septum, distal anterolateral and base to mid posterolateral wall. The right ventricle is moderately dilated. Right ventricular systolic function is mild to moderately reduced. The right ventricular free wall is severely hypokinetic. There is mild to moderate tricuspid regurgitation. The right ventricular systolic pressure is estimated at 58 mmHg assuming a right atrial pressure of 15 mm Hg. There is moderate pulmonary hypertension. 12-lead ECG ECG on admission shows sinus rhythm with no obvious Q waves and no ST changes. Assessment & Plan Assessment 75 yo M with history of poorly controlled diabetes, hypertension, hyperlipidemia , and prior alcohol abuse admitted with UTI, GNR bacteremia, and hypotension. Cardiology consulted for troponin elevation and new wall motion abnormalities on echo. # Hypotension: She has hypotension on presentation was likely due to sepsis physiology based on gram-negative rods in the blood, which are likely from the pocket and UTI. His hypotension is resolved. He is feeling better with antibiotics. - Defer management to primary team for management of infection. # Troponin elevation: likely from SIRS/sepsis. He has no clinical symptoms to suggest acute coronary syndrome. His ECG is unremarkable for any Q waves or significant ST changes. The wall motion abnormalities noted on the echo could be from the acute illness or represent prior non-Q wave infarction. Patient has significant risk factors for coronary artery disease, including poorly controlled diabetes, hypertension, hyperlipidemia, and age > 45. I spent significant time educating the patient and his family about his condition and answered his questions. I recommended that patient recovered from his acute illness and we consider him for stress test as outpatient. There is no need to do invasive coronary angiography at this time. Recommendations as below: - Continue aspirin 81mg daily - Switch from pravastatin to atorvastatin 40mg qhs per ACC-AHA lipid guidelines - No need for heparin gtt from cardiac standpoint - No need for cardiac cath/angiography at this time - Will do stress test as outpatient when I see the patient in cardiology clinic # Diabetes: Patient control of his diabetes has been poor as outpatient. Will defer inpatient management to primary team but consider endocrinology consult as outpatient for optimal diabetes management. # HTN: BP well controlled. - Defer to primary team for management. # HLD: statin as above # Alcohol abuse: Patient congratulated on successful alcohol abstinence since . Thank you for the interesting consultation. Cardiology will sign off time. Please arrange for cardiology follow-up in 4-6 weeks. Pain Evaluation: Adequate Pain Control VTE Prophylaxis: Sub-Q Enoxaparin Resuscitation Status: CPR: Attempt Resuscitation Sergo Owens MD Aug 19, 2016 12:41
[2016-08-19] MEDS: Heparin 25K Unit/500mL 0.45 NS 25,000 UNIT in IV Premix 1 EACH IV SCH (15:50)
--- NOTE | 2016-08-19 17:13 | NUR ---
Temperature: Patient temp 37.8C orally. Tylenol previously administered for head/neck ache. Ice packs applied to neck. Will follow. Addendum: 08/19/16 at 1717 by ALESHIA STUART RN MD hardik tejada. Addendum: 08/19/16 at 1809 by ALESHIA STUART RN Recheck of Temperature 37.1.
[2016-08-19] MEDS: Alum-Mag Hydrox-Simeth 30 mL Suspension PO PRN (20:36)
[2016-08-19] MEDS: Insulin GLARgine 100 Unit/mL Syringe SUBQ SCH (20:38)
[2016-08-20] VITALS (9 sets, daily range): BP systolic 137–174; BP diastolic 71–87; PULSE 81–95; RESP 18–20; O2SAT 95–98
[2016-08-20] MEDS: Heparin 5,000 Unit/mL Inj IVPUSH PRN ×4 (00:26→17:48)
--- NOTE | 2016-08-20 04:31 | NUR ---
Temperature Patient temp 99.8F at bedtime. patient awoke at 0400 c/o sweating, blood sugar 200. Temperature 98F. patient given wash rag per request. will continue to monitor. Heparin gtt infusing per protocol.
[2016-08-20 05:38] LABS: BASOPHILS % (AUTO) 0.4 % (0-3); EOSINOPHILS % (AUTO) 0.9 % (0-5); MONOCYTES % (AUTO) 11.3 % (4-12); Mean Corpuscular Hemoglobin 27.8 pg (27.0-35.0); Mean Corpuscular Volume 84.7 fL (81-100); NEUTROPHILS % (AUTO) 76.1 % (40-74); Platelet Count 171 bil/L (150-400)
[2016-08-20] MEDS: Heparin 25K Unit/500mL 0.45 NS 25,000 UNIT in IV Premix 1 EACH IV SCH ×2 (07:36→21:56)
--- NOTE | 2016-08-20 08:07 | PCM.PNMED ---
Subjective Date of Service Aug 20, 2016 Subjective Resting comfortable in bed, no problems overnight. No chest pain. Blood sugars are still over 200 consistently. Little low grade fever. Exam Vital Signs Vital Sign - Last Date Time Temp Pulse Resp B/P Pulse Ox O2 Delivery O2 Flow Rate FiO2 08/20/16 07:01 91 18 152/80 98 Room Air 08/20/16 04:34 36.8 Intake and Output 08/19/16 08/19/16 08/20/16 Cumulative From/Thru 15:00 23:00 07:00 08/17/16 00:12 - 08/19/16 22:22 Intake Total 400 ml 721 ml 07932 ml Output Total 800 ml 300 ml 3950 ml Balance -400 ml 421 ml 6116 ml Intake Oral 400 ml 236 ml 3232 ml IV Total 485 ml 6834 ml Output Urine Total 800 ml 300 ml 3950 ml # Voids 1 10 # Bowel Movements 0 1 2 Exam Eyes; aurelia eom intact ENMT; adequate hydration, no lesions, no bruit CV; S1S2 present, soft systolic murmur, no gallop, no edema, no JVD Resp; Clear anteriorly, no CVA tenderness GI; Soft, non tender and benign Skin; dry, no rashes Neuro; 2-12 intact, no motor or sensory defects noted, alert Lab and Diagnostics Result Diagram: 08/20/1644908/20/16449 Assessment & Plan This is a pleasant 75-year-old male with past medical history of diabetes and hypertension, and alcohol use up until May of this year who presented with generalized weakness, dizziness and fall with associated increased thirst rigors chills and active fever 100. P patient was found to have hyponatremia and hypochloremia hypomagnesemia elevated d-dimer and a leukocytosis with left shift. Patient was admitted to the hospital for hypertension resulting in a fall for further workup. 1. Sever Sepsis poa, resolved -temp 38.3, rr 24, pulse >90, WBC 12.2,,, -confusion and encephalopathy secondary to sepsis 2. Hypotension, present on admission, resolved -probable secondary to being on the dry side, secondary to polyuria, UTI, and blood pressure meds, PE, and or [place] 3. Acute UTI with Bacteremia, present on admission, active - he reported having intermittent dysuria - UA/culture showing e coli, resistent to Unisyn - BC with gram neg rods - Patient was recently treated for urinary tract infection 1 month ago in the ED and received a signal dose of ceftriaxone and was discharged on by mouth Bactrim twice a day - due to resistence of urine bug to unisyn and past use of ceftriaxone and bactrim priotr to coming to hospital will change Zosyn to Cefepime -day zosyn = 11/17 and 11/18 -day cefepime = 11/18 to 4. Uncontrolled type 2 diabetes, POA, active -HbA1C pending -increase lantus basal, to 22 HS -increase correction to medium dose -add nutritional insulin, 2-4-4 -resume metformin and sitagliptin -patient is new to insulin, teaching 5. Probable Pulmonary embolism, POA, active -reviewed with radiologist, very small peripheral pul artery, motion artifact present, and questionable weather this is a true embolism. -patient has no chest pain, sob -echo however is abnormal showing evidence or prior [place] (no history of this), and moderately dilated RV, hypokenetic RV wall, mod pul hypertension, suggesting possible PE -with echo findings and positive d dimmer patient will be treated for acute PE, coumadin and IV heparin (await coumadin until seen by Cards) -start coumadin today, plan on 3 month treatment 6; Chronic CHF secondary to systolic dysfunction, poa, active -echo with 45-50% ef, secondary to ischemic cardiomyopathy -cardiology consultation -in discussion with [employer] e business consultant he want me not to use an ara at this time as EF > 40%, but to add a b-tomás (toprol XL 25 qd) 7. Possible recent Myocardial Infarction, poa, active -lipitor 40, asa 81, add metop succ 25 daily today -follow up with Card out patient, Dr Owens, with plan for stress test in a few weeks 8. Anemia, Chronicity unknown, present on admission, stable - H/H 10.3/31.1 - We will continue to monitor - Stool guaiac - We will consider iron studies to include ferritin 9. Acute kidney injury, present on admission, resolved -Likely secondary to dehydration, and chronic poorly controlled diabetes resulting osmotic diuresis, polyuria and dehydration - Creatinine .84 today - Patient's baseline creatinine is 0.83 on 07/22/2016 - IV fluids normal saline at 60 per hour for today - consider restarting ara tomorrow 10. Hypomagnesemia - repleat mag Chronic problems: 11.Hypertension -d/c ara and clonidine for now, start toprol XL, add ara back on if needed gfor BP 12. Hyperlipidemia - change to lipitor 40 - Continue aspirin at 81 mg daily Disposition; pcp is Sunni Martins Disposition: Admitted to in patient service with expected length of stay greater than 2 days, secondary to severity of presenting symptoms, treatment plan, complexity of clinical work up, and risk of adverse events. CODE STATUS: Full code PCP: Dr. Macho Truong [facility] Ronald Mccartney DVT PE prophylaxis: Enoxaparin Contact: Sweta(patient's ), - L, VTE Prophylaxis: Sub-Q Enoxaparin Resuscitation Status: CPR: Attempt Resuscitation Ward Li MD Aug 20, 2016 08:07
[2016-08-20] MEDS: COENZYME Q10 PO SCH (08:30)
[2016-08-20] MEDS: Insulin LISPRO 300 Unit/3 mL Inj SUBQ SCH ×4 (08:45→21:10)
[2016-08-20] MEDS: Cefepime Inj 1,000 MG in Dextrose 5% Minibag Plus 50 ML IV SCH ×2 (08:46→20:59)
[2016-08-20] MEDS: MeTOProlol XL 25 mg ER24 Tablet PO SCH (08:47)
[2016-08-20 09:51] LABS: INR 1.04 ratio
--- NOTE | 2016-08-20 10:53 | PCM.PHAPRO ---
Progress Troponin elevation Indication: PE Home Dose: NEW START Date:08/20 INR 1.04 Dose:OT 5MG CONCURRENT: HEPARIN DRIP GOAL INR: 2-3 Pharmacy will continue to follow daily. Thank you for consulting pharmacy in the care of this patient. Bob Hahn Pharm.D Aug 20, 2016 10:53
--- NOTE | 2016-08-20 15:11 | NUR ---
Coumadin Provided by pharmacy. Pt stable and remains on heparin. No complaints. Family at bedside for teaching.
[2016-08-20 17:49] LABS: Creatine Kinase 38 U/L (21-232)
[2016-08-20] MEDS: Insulin GLARgine 100 Unit/mL Syringe SUBQ SCH (21:10)
[2016-08-21] VITALS (9 sets, daily range): BP systolic 104–158; BP diastolic 50–86; PULSE 73–89; RESP 17–20; O2SAT 96–99
[2016-08-21] MEDS: Heparin 5,000 Unit/mL Inj IVPUSH PRN ×3 (00:49→19:53)
[2016-08-21 05:33] LABS: INR 1.04 ratio
--- NOTE | 2016-08-21 06:25 | NUR ---
Neck/Shoulder Pain Pt complains of neck and shoulder pain. Administered Tylenol PRN. Has been on cardiac heparin drip, last PTT is 57.5 per heparin protocol increased by 25units/hour. Now on 2075Units/hour. HS meds administered as scheduled. Insulin administered per sliding scale. VSS and pt has been afebrile overnight.
[2016-08-21] MEDS: Insulin LISPRO 300 Unit/3 mL Inj SUBQ SCH ×4 (07:36→21:25)
[2016-08-21] MEDS: Cefepime Inj 1,000 MG in Dextrose 5% Minibag Plus 50 ML IV SCH ×2 (07:43→20:31)
[2016-08-21] MEDS: MeTOProlol XL 25 mg ER24 Tablet PO SCH (07:43)
--- NOTE | 2016-08-21 08:27 | NUR ---
low blood glucose pts morning BG was 78, he was asymptomatic, gave pt glass of apple juice, rechecked BG 20 minutes later and it was 123
--- NOTE | 2016-08-21 09:15 | NUR ---
FRANCISCO JAVIER signed. CHAPIN Ram
--- NOTE | 2016-08-21 11:00 | NUR ---
heparin drip pt has been on cardiac heparin protocol instead of DVT protocol for a PE since initial order was placed. Notified Dr Blue and he stated that he was fine keeping the pt on the cardiac protocol even though the pt has a PE and would make a notation in his progress note about it.
[2016-08-21] MEDS: Heparin 25K Unit/500mL 0.45 NS 25,000 UNIT in IV Premix 1 EACH IV SCH ×2 (11:09→22:44)
--- NOTE | 2016-08-21 12:25 | NUR ---
heparin drip PTT was 44.5 increased from 2075 to 2125un/hr and gave 1000unit bolus per protocol. Double verified with Alex Mcclain
--- NOTE | 2016-08-21 13:22 | PCM.PNMED ---
Subjective Date of Service Aug 21, 2016 Subjective +Improving, no problems overnight. Blood sugars bit low this AM, will reduce the Lantus. Patient and wif learning about insulin, coumadin. Exam Vital Signs Vital Sign - Last Date Time Temp Pulse Resp B/P Pulse Ox O2 Delivery O2 Flow Rate FiO2 08/21/16 09:38 36.4 80 20 134/66 97 Room Air Intake and Output 08/20/16 08/20/16 08/21/16 Cumulative From/Thru 15:00 23:00 07:00 08/17/16 00:12 - 08/21/16 06:19 Intake Total 1000 ml 1100 ml 2675 ml 84224 ml Output Total 1375 ml 450 ml 1450 ml 7225 ml Balance -375 ml 650 ml 1225 ml 7616 ml Intake Oral 1000 ml 1100 ml 600 ml 5932 ml IV Total 2075 ml 8909 ml Output Urine Total 1375 ml 450 ml 1450 ml 7225 ml # Voids 1 11 # Bowel Movements 0 1 1 4 Exam Eyes; aurelia eom intact ENMT; adequate hydration, no lesions, no bruit CV; S1S2 present, soft systolic murmur, no gallop, no edema, no JVD Resp; Clear anteriorly, no CVA tenderness GI; Soft, non tender and benign Skin; dry, no rashes Neuro; 2-12 intact, no motor or sensory defects noted, alert, cooperative Lab and Diagnostics Result Diagram: 08/20/16 0450 08/20/16 0450 Assessment & Plan This is a pleasant 75-year-old male with past medical history of diabetes and hypertension, and alcohol use up until May of this year who presented with generalized weakness, dizziness and fall with associated increased thirst rigors chills and active fever 100. P patient was found to have hyponatremia and hypochloremia hypomagnesemia elevated d-dimer and a leukocytosis with left shift. Patient was admitted to the hospital for hypertension resulting in a fall for further workup. 1. Sever Sepsis poa, resolved -temp 38.3, rr 24, pulse >90, WBC 12.2,,, -confusion and encephalopathy secondary to sepsis 2. Hypotension, present on admission, resolved -probable secondary to being on the dry side, secondary to polyuria, UTI, and blood pressure meds, PE, and or [place] 3. Acute UTI with Bacteremia, present on admission, improving -he reported having intermittent dysuria -UA/culture showing e coli, resistent to Unisyn -BC with gram neg rods -Patient was recently treated for urinary tract infection 1 month ago in the ED and received a signal dose of ceftriaxone and was discharged on by mouth Bactrim twice a day -due to resistence of urine bug to unisyn and past use of ceftriaxone and bactrim prior to coming to hospital will change Zosyn to Cefepime -day zosyn = / and 11/18 -day cefepime = start 11/18 Day#3 consider 3 more days Cefepime 4. Uncontrolled type 2 diabetes, POA, improving -HbA1C pending -Basal insulin; Lantus, reduce to 18 change to dinner time (pharmacy will put in order for lantus with dinner as computer program will not let me enter this order) -correction insulin; humalog change ot low dose correction scale -nutritional insulin; increase to 2 ac am, 5 ac lunch, and 5 ac dinner 2-4-4 -resume metformin and sitagliptin -patient is new to insulin, teaching -recommend to discharge on basal/bolus dosing as above to get good glycemic control, then see a diabetic doctor to adjust regime to some easier in the near future 5. Possible Pulmonary embolism, POA, active -reviewed with radiologist, very small peripheral pul artery, motion artifact present, and questionable weather this is a true embolism. 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 Possible recent Myocardial Infarction, poa, active -lipitor 40, asa 81, add metop succ 25 daily today -follow up with Card out patient, Dr Owens, with plan for stress test in a few weeks 8. Anemia, Chronicity unknown, present on admission, stable - H/H 10.3/31.1 - We will continue to monitor - Stool guaiac - We will consider iron studies to include ferritin 9. Acute kidney injury, present on admission, resolved -Likely secondary to dehydration, and chronic poorly controlled diabetes resulting osmotic diuresis, polyuria and dehydration - Creatinine .84 today - Patient's baseline creatinine is 0.83 on 07/22/2016 - IV fluids normal saline at 60 per hour for today - consider restarting ara tomorrow 10. Hypomagnesemia - repleat mag Chronic problems: 11.Hypertension -d/c ara and clonidine for now, start toprol XL, add ara back on if needed gfor BP 12. Hyperlipidemia - change to lipitor 40 - Continue aspirin at 81 mg daily Disposition; pcp is Sunni Martins Disposition: Admitted to in patient service with expected length of stay greater than 2 days, secondary to severity of presenting symptoms, treatment plan, complexity of clinical work up, and risk of adverse events. CODE STATUS: Full code PCP: Dr. Macho Truong [facility] Ronald Mccartney DVT PE prophylaxis: Enoxaparin Contact: Sweta(patient's ), - H, VTE Prophylaxis: Sub-Q Enoxaparin Resuscitation Status: CPR: Attempt Resuscitation Ward Li MD Aug 21, 2016 13:22
[2016-08-21] MEDS ORDERED: Insulin GLARgine 100 Unit/mL Syringe SUBQ SCH (13:25)
--- NOTE | 2016-08-21 15:00 | NUR ---
Patient care: Aquired patient care at 1445. Patient is not having pain . He is on Heparin drip running at 42.5ml/2125u hourly. Per Dr Oscar patient was changed to DVT heparin drip from Cardiac heparin drip. His next PTT draw is at 1800.
--- NOTE | 2016-08-21 15:40 | NUR ---
Social Work - Continued Discharge Planning Data: EMR reviewed. Pt is on day 4 of hospitalization for hypotension/hyponatremia/syncope per H&P. Pt is not yet medically cleared for discharge and will likely be here 2-3 more days per morning rounds. SW met with pt and Sweta at bedside to check in and confirm discharge plan home via . No further discharge needs assessed at this time. SW will continue to follow for needs. Assessment: Pt who is independent at baseline. Plan: Pt to discharge home via POV when medically stable. No further discharge needs assessed at this time. SW will continue to follow for needs. CHAPIN Ram
[2016-08-21] MEDS: Insulin GLARgine 100 Unit/mL Syringe SUBQ SCH (17:20)
[2016-08-22] VITALS (7 sets, daily range): BP systolic 134–168; BP diastolic 77–91; PULSE 68–78; RESP 18; O2SAT 96–99
--- NOTE | 2016-08-22 02:39 | NUR ---
PTT Heparin Pt is currently on 30.5units/kg/hr. With a PTT of 71.3. Next PTT Heparin draw will be @0500. No signs of bleeding. Educate pt about risk of bleeding when brushing and flossing. Pt states understanding. Will continue to monitor.
[2016-08-22 06:06] LABS: INR 1.06 ratio
[2016-08-22] MEDS: Heparin 5,000 Unit/mL Inj IVPUSH PRN (07:01)
[2016-08-22] MEDS: Insulin LISPRO 300 Unit/3 mL Inj SUBQ SCH ×4 (08:00→21:32)
[2016-08-22] MEDS: MeTOProlol XL 25 mg ER24 Tablet PO SCH (08:19)
[2016-08-22] MEDS: Cefepime Inj 1,000 MG in Dextrose 5% Minibag Plus 50 ML IV SCH (08:22)
[2016-08-22 08:39] LABS: Mean Corpuscular Hemoglobin 27.7 pg (27.0-35.0); Mean Corpuscular Volume 86.9 fL (81-100); Platelet Count 311 bil/L (150-400)
[2016-08-22 08:49] LABS: Magnesium 2.1 mg/dL (1.6-2.6)
[2016-08-22 09:35] LABS: BASOPHILS % (AUTO) 1 % (0-3); EOSINOPHILS % (AUTO) 2 % (0-5); MONOCYTES % (AUTO) 9 % (4-12); NEUTROPHILS % (AUTO) 75 % (40-74)
[2016-08-22] MEDS: Heparin 25K Unit/500mL 0.45 NS 25,000 UNIT in IV Premix 1 EACH IV SCH ×4 (12:06→23:51)
--- NOTE | 2016-08-22 12:59 | PCM.PHAPRO ---
Progress Troponin elevation WARFARIN DOSING PER PHARMACY (day) 1 2 3 RPh RTM NTV DFF Date -Aug 21-Aug 22-Aug INR 1.04 1.04 1.06 INR change 0.02 Warf Dose 5 5 5 Plan: Day three of warfarin initiation. No significant change in INR. Will continue warfarin 5mg tonight with possible dose increase tomorrow if INR doesn' t make significant gains. Ric Gill,PharmD Ric Gill Aug 22, 2016 12:59
--- NOTE | 2016-08-22 15:46 | PCM.PNMED ---
Subjective Date of Service Aug 22, 2016 Subjective denies any new issues/complaints Exam Vital Signs Vital Sign - Last Date Time Temp Pulse Resp B/P Pulse Ox O2 Delivery O2 Flow Rate FiO2 08/22/16 14:33 36.7 78 18 141/91 98 Room Air Intake and Output 08/21/16 08/21/16 08/22/16 Cumulative From/Thru 15:00 23:00 07:00 08/17/16 00:12 - 08/22/16 06:50 Intake Total 1954 ml 1405 ml 19247 ml Output Total 1350 ml 1940 ml 87558 ml Balance 604 ml -535 ml 7685 ml Intake Oral 1954 ml 800 ml 8686 ml IV Total 605 ml 9514 ml Output Urine Total 1350 ml 1940 ml 80398 ml # Voids 11 # Bowel Movements 2 1 7 General: Alert, Cooperative, No Acute Distress Eyes: Scleral Anicteric Mouth: Mucous Membr Moist/[place] Neck: Supple Chest & Lungs: Chest Wall Normal, Clear to auscultation & percussion Cardiovascular: Regular Rate/Rhythm Abdomen: Non-tender, Non-distended, Normoactive bowel tones, Soft Extremities: No cyanosis/clubbing/edma bilat Neurological: Grossly Neurologically Intact, Normal Speech IVs and Medications Medications Reviewed: Medications were reviewed in detail Lab and Diagnostics Result Diagram: 08/22/1652908/22/16529 Assessment & Plan 75-year-old male with past medical history of diabetes and hypertension, and alcohol use up until May of this year who presented with generalized weakness, dizziness and fall with associated increased thirst rigors chills and active fever 100. Patient was found to have hyponatremia and hypochloremia hypomagnesemia elevated d-dimer and a leukocytosis with left shift. Patient was admitted to the hospital for hypertension resulting in a fall for further workup. # Acute Sever Sepsis, source UTI and bacteremia, poa, resolved -temp 38.3, rr 24, pulse >90, WBC 12.2 -confusion and encephalopathy secondary to sepsis, poa. resolved # Hypotension, present on admission, resolved -probable secondary to being on the dry side, secondary to polyuria, UTI, and blood pressure meds, PE, and or [place] # Acute E. Coli UTI with Bacteremia, present on admission, improving -he reported having intermittent dysuria -Patient was recently treated for urinary tract infection 1 month ago in the ED and received a signal dose of ceftriaxone and was discharged on by mouth Bactrim twice a day -due to resistence of urine bug to unisyn and past use of ceftriaxone and bactrim prior to coming to hospital Abx changed from Zosyn to Cefepime -ID consulted today for further recs on Abx choice and duration. will f/u w/ recs # Chronic type 2 diabetes, POA, poorly controlled as outpatient. improving -HbA1C 10.1 -Basal insulin; Lantus, reduce to 18 change to dinner time (pharmacy will put in order for lantus with dinner as computer program will not let me enter this order) -correction insulin; humalog change ot low dose correction scale -nutritional insulin; increase to 2 ac am, 5 ac lunch, and 5 ac dinner 2-4-4 -c/w home dose metformin and sitagliptin -patient is new to insulin, teaching -recommend to discharge on basal/bolus dosing as above to get good glycemic control, then see a diabetic doctor to adjust regime to some easier in the near future # Possible Acute Pulmonary embolism, POA, active -patient has no chest pain, sob -echo however is abnormal showing evidence or prior [place] (no history of this), and moderately dilated RV, hypokenetic RV wall, mod pul hypertension, suggesting possible PE -with echo findings and positive d cristóbalmer decision was made to treat for acute PE -c/w heparin to Coumadin bridging (to be adjusted by pharmacy) -f/u daily INR (goal 2-3) -plan on 3 month treatment, then change to asa # Chronic CHF secondary to systolic dysfunction, poa, active -echo with 45-50% ef, secondary to ischemic cardiomyopathy -appreciate cardiology consult. will f/u w/ recs -per earlier notes by Dr. Blue: "in discussion with [employer] spa consultant he want me not to use an ara at this time as EF > 40%, but to add a b-tomás ( toprol XL 25 qd)" # Possible recent Myocardial Infarction, poa, active -lipitor 40, asa 81, add metop succ 25 daily today -follow up with Card out patient, Dr Owens, with plan for stress test in a few weeks # Anemia, Chronicity unknown, present on admission, stable - We will continue to monitor # Acute kidney injury, present on admission, resolved -Likely secondary to dehydration, and chronic poorly controlled diabetes resulting osmotic diuresis, polyuria and dehydration # Acute Hypomagnesemia. poa. resolved. # Hypertension -d/c ara and clonidine for now, start toprol XL, add ara back on if needed gfor BP # Hyperlipidemia - change to lipitor 40 - Continue aspirin at 81 mg daily Dispo: 2-3 days VTE Prophylaxis: Sub-Q Enoxaparin Resuscitation Status: CPR: Attempt Resuscitation Time spent 37 min Mg uDke Aug 22, 2016 15:46 PCP: Dr. Macho Truong [facility] Ronald Mccartney DVT PE prophylaxis: Enoxaparin Contact: Sweta(patient's ), - h, VTE Prophylaxis: Sub-Q Enoxaparin Resuscitation Status: CPR: Attempt Resuscitation Mg Duke Aug 22, 2016 15:46
[2016-08-22] MEDS ORDERED: cefTRIAXone Inj 2,000 MG in Dextrose 5% Minibag Plus 50 ML IV ONE (17:50)
[2016-08-22] MEDS: Insulin GLARgine 100 Unit/mL Syringe SUBQ SCH (18:25)
--- NOTE | 2016-08-22 19:40 | NUR ---
Heparin drip PTT @ 1100, 60.2. at 1735 PTT 71.6. No change to rate. Continues at 48.1 ml hr.
--- NOTE | 2016-08-22 22:12 | CONS ---
[address] [address] CONSULTATION REPORT PATIENT: NIDIA PICKETT : 1940 MR#: [id number] ADMIT: 08/17/2016 JOB ID: [id number] DATE OF SERVICE: 08/22/[address] Duke for this timely consult. REASON FOR CONSULTATION: Septic shock secondary to E. coli bacteremia due to E. coli complicated urinary tract infection. HISTORY OF PRESENT ILLNESS: The patient is a 75-year-old, retired [employer] man who suffers from diabetes, hypertension and a history of heavy alcohol use. He was seen and evaluated at this facility in July with what appeared to be a complicated urinary tract infection. He was managed with a dose of ceftriaxone and then a one-week course of oral Septra at home after an ED visit and seemed to do well until August 16, when he developed weakness and a fall. He was then brought to the emergency department and subsequently admitted with a story of generalized weakness, dizziness, and the fall, during which he did not strike his head. He noted that he had a relapse of his urinary symptoms, however, at about the same time, which was very similar to what happened in July but more severe in that he had dysuria, urgency, frequency, fevers, chills, rigors and malaise. He notes that these symptoms have come back in the weeks following the completion of the course of oral Bactrim. There was no associated pulmonary or GI symptoms at the time of his presentation to the ED on August 16 and his admission at that time. Following evaluation in the ED, the patient was noted to have an elevated white count as well as pyuria and was admitted to the hospital after appropriate cultures were done. He was started on Unasyn but then switched to Zosyn when his blood and urine cultures grew gram-negative rods which eventually proved to be resistant to Unasyn. Subsequently, he has been switched to cefepime, which he is currently receiving. The patient reports that with these antibiotics and hydration and better management of his diabetes. He has improved considerably and his dysuria, urgency, frequency, and fevers are subsiding. ID consultation is requested regarding appropriate management. PAST MEDICAL HISTORY: 1. Diabetes mellitus. 2. Hypertension. 3. Essential tremor. 4. Hyperlipidemia. FAMILY HISTORY: Positive for coronary artery disease and diabetes. SOCIAL HISTORY: The patient quit drinking several months ago. He is a lifelong nonsmoker and lives with his in the local area. During his time in the he served in diverse locations including [facility] and locations in [place] as well as [place] and [place]. REVIEW OF SYSTEMS: Was done. The patient has no headache, visual change, sore throat, cough, chest pain, shortness of breath, nausea, vomiting, or diarrhea. His dysuria, urgency and frequency are improving. He has had no more periods of dizziness or syncope. He denies focal neurologic complaint. Remainder of the review of systems is negative. PHYSICAL EXAMINATION: Reveals an afebrile gentleman, temperature 36.7, pulse 78, respiratory rate 18, blood pressure 141/91. He is saturating well on room air. Note that when he first came in though his temperatures was as high as 39.3. Also note that when he was first admitted. He had a series of blood pressures with systolic pressures below 90, and at one point, his systolic pressure was only 75, consistent with septic shock. Examination of the head: No trauma. No temporal wasting. Eyes without conjunctivitis. No scleral icterus. Oral cavity without thrush, hairy leukoplakia. Neck: Supple. No JVD or adenopathy. Lungs clear to auscultation. Cardiac exam: Regular rate and rhythm without murmur. Abdomen soft and nontender. No flank tenderness today. She does not have a [place]. Does not have suprapubic tenderness. Joints without synovitis. No significant peripheral edema. He has excellent peripheral pulses in his feet and his feet his hands are well perfused. There is no significant peripheral edema. The patient is neurologically intact though he does have his essential tremor. LABORATORIES: Include white count 12,000 when he came in with mild left shift, now down to 9500. Creatinine 0.79. Procalcitonin was 2.21 when he came in. Most recently, 0.5 two days ago. Urinalysis was packed with white cells when he was admitted. Micro studies include blood cultures, two of eight bottles positive for an E coli and urine also grew the same E. Coli. This organism is resistant to cefazolin, Unasyn and ampicillin but sensitive to everything else including ceftriaxone, Cipro, and Bactrim. IMAGING: Includes retroperitoneal ultrasound, which is normal. No stones or hydroureter or hydropelvis was seen. A CT angio of the chest showed possible small pulmonary embolism. Chest x-ray is clear. IMPRESSION: This gentleman presented in July of this year with what appeared to be a complicated urinary tract infection which was appropriately treated with a single dose of ceftriaxone followed by Bactrim. After improving the patient then relapsed and presents this time with septic shock secondary to his complicated urinary tract infection with E. coli. Interestingly, the E. coli is actually sensitive to the Bactrim he received previously raising a question as to why this treatment failed. I suspected that it failed because of some structural abnormality which needs to be evaluated in this gentleman who has now had two serious complicated urinary tract infections, one with sepsis, in the past month or so. RECOMMENDATIONS: 1. We can discontinue the cefepime the patient is currently receiving as it is unnecessary for this standard E. coli. 2. The patient will be given a single dose of ceftriaxone for the transition to oral therapy. 3. Will go ahead and start the patient on Cipro 500 mg p.o. b.i.d. 4. Will go ahead and start the patient on Cipro 500 mg p.o. b.i.d. with the intention of going about 10 days starting this evening and going through September 01. 5. The patient needs to have urologic evaluation, either as an inpatient or shortly after discharge as an outpatient. He has had two fairly severe urinary tract infections, and this one could be considered life-threatening, and there is likely an underlying structural problem such as benign prostatic hypertrophy or some other related issue. Thank you very much this consult. We will see the patient again tomorrow.
[2016-08-23] VITALS (9 sets, daily range): BP systolic 112–169; BP diastolic 68–82; PULSE 66–91; RESP 20; O2SAT 95–99
--- NOTE | 2016-08-23 07:29 | NUR ---
NOC/Heparin Drip Pt denies chest pain, sob, n/v or abd discomfort. Complains of mild leg pain, relieve with tylenol. Heparin drip running on 30.5units/kg/hr. Next draw will be 1100. HS meds administered as scheduled, Blood sugar checks and insulin administered as per sliding scale. ABx Rocephine administered. Hourly rounding done and pt has slept most of the night
[2016-08-23 07:45] LABS: INR 1.31 ratio
[2016-08-23] MEDS: Insulin LISPRO 300 Unit/3 mL Inj SUBQ SCH ×4 (08:00→22:00)
[2016-08-23] MEDS: MeTOProlol XL 25 mg ER24 Tablet PO SCH (10:08)
--- NOTE | 2016-08-23 11:55 | NUR ---
[facility] signed @ [id number]
[2016-08-23] MEDS: Heparin 25K Unit/500mL 0.45 NS 25,000 UNIT in IV Premix 1 EACH IV SCH ×4 (11:58→23:24)
--- NOTE | 2016-08-23 15:37 | PCM.PHAPRO ---
Progress Troponin elevation WARFARIN DOSING PER PHARMACY [facility] RTM NTV DFF DFF Date 8-Aug 21-Aug 22-Aug 23-Aug INR 1.04 1.04 1.06 1.31 INR change 0.02 0.25 Warf Dose 5 5 5 5 INR uptrending but still subtherapeutic after 3 doses of warfarin. Will continue warfarin 5mg as we are seeing an uptrend on schedule with typical warfarin new starts. If trend changes tomorrow, will consider dose change. Ric Gill Aug 23, 2016 15:37
--- NOTE | 2016-08-23 16:18 | PCM.PNMED ---
Subjective Date of Service Aug 23, 2016 Subjective denies any new issues/complaints Exam Vital Signs Vital Sign - Last Date Time Temp Pulse Resp B/P Pulse Ox O2 Delivery O2 Flow Rate FiO2 08/23/16 11:22 71 08/23/16 10:35 Intake and Output 08/22/16 08/22/16 08/23/16 Cumulative From/Thru 15:00 23:00 07:00 08/17/16 00:12 - 08/23/16 06:58 Intake Total 1369 ml 645 ml 92517 ml Output Total 1250 ml 09063 ml Balance 119 ml 645 ml 8449 ml Intake Oral 1036 ml 9722 ml IV Total 333 ml 645 ml 77698 ml Output Urine Total 1250 ml 96711 ml # Voids 11 # Bowel Movements 1 8 Exam General: Alert, Cooperative, No Acute Distress Eyes: Scleral Anicteric Mouth: Mucous Membr Moist/[place] Neck: Supple Chest & Lungs: Chest Wall Normal, Clear to auscultation bilat Cardiovascular: Regular Rate/Rhythm Abdomen: Non-tender, Non-distended, Normoactive bowel tones, Soft Extremities: No cyanosis/clubbing/edema bilat Neurological: Grossly Neurologically Intact, Normal Speech IVs and Medications Medications Reviewed: Medications were reviewed in detail Lab and Diagnostics Result Diagram: 08/23/1651708/22/16529 Assessment & Plan 75-year-old male with past medical history of diabetes and hypertension, and alcohol use up until May of this year who presented with generalized weakness, dizziness and fall with associated increased thirst rigors chills and active fever 100. Patient was found to have hyponatremia and hypochloremia hypomagnesemia elevated d-dimer and a leukocytosis with left shift. Patient was admitted to the hospital for hypertension resulting in a fall for further workup. # Possible Acute Pulmonary embolism, POA, active -patient has no chest pain, sob -echo however is abnormal showing evidence or prior [place] (no history of this), and moderately dilated RV, hypokenetic RV wall, mod pul hypertension, suggesting possible PE -with echo findings and positive d dimmer decision was made to treat for acute PE -c/w heparin to Coumadin bridging (to be adjusted by pharmacy) -f/u daily INR (goal 2-3) -plan on 3 month treatment, then change to asa # Acute E. Coli UTI with Bacteremia, present on admission, improving -he reported having intermittent dysuria -Patient was recently treated for urinary tract infection 1 month ago in the ED and received a signal dose of ceftriaxone and was discharged on by mouth Bactrim twice a day -due to resistance of urine bug to Unasyn and past use of ceftriaxone and Bactrim prior to coming to hospital Abx changed from Zosyn to Cefepime -appreciate ID consult. will f/u w/ recs -Cipro 500 mg p.o. b.i.d. with the intention of going about 10 days starting this evening and going through September 01. -urology consult followup as outpatient # Acute Sever Sepsis, source UTI and bacteremia, poa, resolved -temp 38.3, rr 24, pulse >90, WBC 12.2 -confusion and encephalopathy secondary to sepsis, poa. resolved # Hypotension, present on admission, resolved -probable secondary to being on the dry side, secondary to polyuria, UTI, and blood pressure meds, PE, and or [place] -resume BP meds cautiously # Chronic type 2 diabetes, POA, poorly controlled as outpatient. 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 will f/u w/ recs -per earlier notes by Dr. Li: "in discussion with [employer] travel sales consultant he want me not to use an ara at this time as EF > 40%, but to add a b-tomás ( toprol XL 25 qd)" # Possible recent Myocardial Infarction, poa, active -lipitor 40, asa 81, add metop succ 25 daily today -follow up with Card out patient, Dr Owens, with plan for stress test in a few weeks # Anemia, Chronicity unknown, present on admission, stable - We will continue to monitor # Acute kidney injury, present on admission, resolved -Likely secondary to dehydration, and chronic poorly controlled diabetes resulting osmotic diuresis, polyuria and dehydration # Acute Hypomagnesemia. poa. resolved. # Hypertension -d/c ara and clonidine for now, start toprol XL, add ara back on if needed gfor BP # Hyperlipidemia - change to lipitor 40 - Continue aspirin at 81 mg daily Dispo: 2-3 days VTE Prophylaxis: Sub-Q Enoxaparin Resuscitation Status: CPR: Attempt Resuscitation Mg Duke Aug 23, 2016 16:18 Mg Duke Aug 23, 2016 16:18
--- NOTE | 2016-08-23 16:28 | PROG NOTE ---
[address] [address] PROGRESS NOTE PATIENT: NIDIA PICKETT : 1940 MR#: [id number] ADMIT: 08/17/2016 JOB ID: [id number] DATE: 08/23/2016 REASON FOR FOLLOWUP: Bacteremic, E. coli, complicated urinary tract infection. INTERVAL HISTORY: The patient continues to feel quite well today. He denies additional fevers, chills or sweats. No significant cough, nausea, vomiting, diarrhea. His urinary frequency and dysuria are much improved. PHYSICAL EXAMINATION: Reveals an afebrile, comfortable gentleman. Temp 36.7, pulse 71, respiratory rate 20, blood pressure 169/80, saturating 98% on room air. He is in no acute distress whatsoever. No skin rash. No oral lesions. Lungs are clear. Abdomen benign. No flank pain. LABORATORIES: Include white count 9500 yesterday, not repeated today. His INR 1.31 today. There are ongoing efforts to anticoagulate the patient, who may have had a PE. Creatinine 0.79. Procalcitonin 0.54. Blood cultures on admission, as well as urine grew E. Coli which was quite susceptible to Cipro. IMPRESSION: 1. Bacteremic Escherichia E coli. 2. Complicated urinary tract infection. This patient had failed a course of Bactrim and it is unclear exactly why, but at this point, I think it is reasonable to continue with the Cipro. RECOMMENDATIONS: 1. The patient can be discharged at any time on Cipro 500 p.o. b.i.d., to go through September 01. 2. The patient needs urologic evaluation. 3. This case was discussed in detail with the patient by our resident and all questions were answered. I also personally saw the patient and reviewed his course and also the imperative nature of him seeking urologic followup in the next month or so. Thank you very much. ID will sign off.
[2016-08-23] MEDS: Insulin GLARgine 100 Unit/mL Syringe SUBQ SCH (17:58)
--- NOTE | 2016-08-23 19:37 | NUR ---
Heparin Drip Patient continued with heparin drip, most resent APTT 98.3. Heparin decreased to 28.5 units/k/hr = 43.3mls/hr.
[2016-08-23] MEDS ORDERED: cloNIDine 0.1 mg Tablet PO SCH (21:00)
[2016-08-24] VITALS (9 sets, daily range): BP systolic 128–166; BP diastolic 60–84; PULSE 57–67; RESP 18–20; O2SAT 97–100
--- NOTE | 2016-08-24 04:28 | NUR ---
Noc activity Pt denies chest pain, sob, n/v or abd discomfort. Has been pleasant and cooperative with care. Heparin drip running per protocol. No s/sx of hemorrhage or bleeding. Telemetry monitoring reports no abnormal ectopy. Pt's VSS and has been afebrile overnight.
[2016-08-24 04:53] LABS: INR 1.54 ratio
[2016-08-24] MEDS: Insulin LISPRO 300 Unit/3 mL Inj SUBQ SCH ×4 (07:47→21:57)
[2016-08-24] MEDS: MeTOProlol XL 25 mg ER24 Tablet PO SCH (07:59)
--- NOTE | 2016-08-24 11:20 | NUR ---
Social Work: Continued d/c planning Data: Pt is on day 7 of hospitalization. EMR reviewed, pt discussed in rounds. anticipated pt to remain in hospital for 2 or more days awaiting for INR to be therapeutic. Pt has been ambulating in hallways, PT order cancelled. No d/c planning needs anticipated at this time. FURNITURE MOVER HELPER will continue to follow if needs arise. Assessment: Pt who is independent at baseline. Plan: pt will d/c home via POV when medically stable. No d/c planning needs anticipated at this time. FURNITURE MOVER HELPER will continue to follow if needs arise. CHAPIN Woods
[2016-08-24] MEDS: Heparin 25K Unit/500mL 0.45 NS 25,000 UNIT in IV Premix 1 EACH IV SCH (11:39)
--- NOTE | 2016-08-24 12:24 | NUR ---
Heparin gtt Rec'd PTT result: 70.9. Per protocol, no change in current rate which is 25.5 units/kg/hr (38.8ml/hr). PTT to be drawn at 1700. No indicators of bleeding noted this shift thus far.
--- NOTE | 2016-08-24 13:37 | PCM.PHAPRO ---
Progress Troponin elevation WARFARIN DOSING PER PHARMACY [facility] RTM NTV DFF DFF DFF Date -Aug 21-Aug 22-Aug 23-Aug 24-Aug INR 1.04 1.04 1.06 1.31 1.54 INR change 0.02 0.25 0.23 Warf Dose 5 5 5 5 2.5+7.5 Suptherapeutic INR that is still slowly uptrending. Gave additional 2.5mg dose in AM to supplement yesterday's 5mg dose. Will increase to warfarin 7.5mg this evening and continue to monitor. Ric Gill,PharmD Ric Gill Aug 24, 2016 13:37
--- NOTE | 2016-08-24 14:07 | PCM.PNMED ---
Subjective Date of Service Aug 24, 2016 Subjective denies any new issues/complaints Exam Vital Signs Vital Sign - Last Date Time Temp Pulse Resp B/P Pulse Ox O2 Delivery O2 Flow Rate FiO2 08/24/16 13:38 36.7 64 18 128/62 97 Room Air Intake and Output 08/23/16 08/23/16 08/24/16 Cumulative From/Thru 15:00 23:00 07:00 08/17/16 00:12 - 08/24/16 06:37 Intake Total 575 ml 1400 ml 1789 ml 64894 ml Output Total 2550 ml 1700 ml 2550 ml 73706 ml Balance -1975 ml -300 ml -761 ml 5413 ml Intake Oral 575 ml 1400 ml 800 ml 67455 ml IV Total 989 ml 12877 ml Output Urine Total 2550 ml 1700 ml 2550 ml 64976 ml # Voids 11 # Bowel Movements 0 8 Exam General: Alert, Cooperative, No Acute Distress Eyes: Scleral Anicteric Mouth: Mucous Membr Moist/[place] Neck: Supple Chest & Lungs: Chest Wall Normal, Clear to auscultation bilat Cardiovascular: Regular Rate/Rhythm Abdomen: Non-tender, Non-distended, Normoactive bowel tones, Soft Extremities: No cyanosis/clubbing/edema bilat Neurological: Grossly Neurologically Intact, Normal Speech IVs and Medications Medications Reviewed: Medications were reviewed in detail Lab and Diagnostics Result Diagram: 08/23/1651708/22/16529 Assessment & Plan 75-year-old male with past medical history of diabetes and hypertension, and alcohol use up until May of this year who presented with generalized weakness, dizziness and fall with associated increased thirst rigors chills and active fever 100. Patient was found to have hyponatremia and hypochloremia hypomagnesemia elevated d-dimer and a leukocytosis with left shift. Patient was admitted to the hospital for hypertension resulting in a fall for further workup. # Possible Acute Pulmonary embolism, POA, active -patient has no chest pain, sob -echo however is abnormal showing evidence or prior SC (no history of this), and moderately dilated RV, hypokenetic RV wall, mod pulmonary hypertension, suggesting possible PE -with echo findings and positive d dimmer decision was made to treat for acute PE -c/w heparin to Coumadin bridging (to be adjusted by pharmacy) -f/u daily INR (goal 2-3) -plan on 3 month treatment, then change to asa # Acute E. Coli UTI with Bacteremia, present on admission, improving -he reported having intermittent dysuria -Patient was recently treated for urinary tract infection 1 month ago in the ED and received a signal dose of ceftriaxone and was discharged on by mouth Bactrim twice a day -due to resistance of urine bug to Unasyn and past use of ceftriaxone and Bactrim prior to coming to hospital Abx changed from Zosyn to Cefepime -appreciate ID consult. will f/u w/ recs -Cipro 500 mg p.o. b.i.d. with the intention of going about 10 days starting this evening and going through September 01. -urology consult followup as outpatient # Acute Sever Sepsis, source UTI and bacteremia, present on admission, resolved -temp 38.3, rr 24, pulse >90, WBC 12.2. with associated encephalopathy # confusion and encephalopathy secondary to sepsis, present on admission. resolved # Hypotension, present on admission, resolved -probable secondary to being on the dry side, secondary to polyuria, UTI, and blood pressure meds, PE, and or SC -resume BP meds cautiously # Chronic type 2 diabetes, POA, poorly controlled as outpatient. 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 will f/u w/ recs -per earlier notes by Dr. Li: "in discussion with [employer] institutional nutrition consultant he want me not to use an IRLANDA-I at this time as EF > 40%, but to add a b-tomás (Toprol XL 25 qd)" # Possible recent Myocardial Infarction, poa, active -Lipitor 40, -continue asa 81 daily -continue Metoprolol 25 daily -follow up with Cardiology as out patient, Dr Owens, with plan for stress test in a few weeks # Anemia, Chronicity unknown, present on admission, stable - We will continue to monitor # Acute kidney injury, present on admission, resolved -Likely secondary to dehydration, and chronic poorly controlled diabetes resulting osmotic diuresis, polyuria and dehydration # Acute Hypomagnesemia. poa. resolved. # Hypertension -continue with Toprol XL, -add hold Clonidine and resume home dose IRLANDA-I # Hyperlipidemia - change to lipitor 40 - Continue aspirin at 81 mg daily Dispo: 1-2 days pending therapeutic INR VTE Prophylaxis: Sub-Q Enoxaparin Resuscitation Status: CPR: Attempt Resuscitation Mg Duke Aug 24, 2016 14:07
[2016-08-24] MEDS ORDERED: Warfarin 5 MG, Warfarin 2.5 MG PO ONE ×2 (17:00)
[2016-08-24] MEDS: Insulin GLARgine 100 Unit/mL Syringe SUBQ SCH (17:52)
--- NOTE | 2016-08-24 18:00 | NUR ---
Heparin gtt PTT result 70.3, no change per protocol. Next PTT to be drawn in AM. Heparin continues to run at 25u/kg/hr (38.8ml/hr). No indicators of bleeding noted thus far.
[2016-08-25] VITALS (8 sets, daily range): BP systolic 125–183; BP diastolic 56–87; PULSE 64–75; RESP 18–19; O2SAT 96–99
[2016-08-25] MEDS: Heparin 25K Unit/500mL 0.45 NS 25,000 UNIT in IV Premix 1 EACH IV SCH (01:08)
[2016-08-25 06:03] LABS: INR 2.41 ratio
--- NOTE | 2016-08-25 07:17 | NUR ---
Heparin Patient heparin Gtt. 104.9 this AM. decreased gtt to 23.5units/kg/hr per protocol. next PTT heparin in 6 hours. Patient had uneventful night. slept throughout the night no c/o pain/discomfort. no s/s of bleeding. will continue to monitor.
[2016-08-25] MEDS: MeTOProlol XL 25 mg ER24 Tablet PO SCH (07:48)
[2016-08-25] MEDS: Insulin LISPRO 300 Unit/3 mL Inj SUBQ SCH ×4 (07:49→21:07)
--- NOTE | 2016-08-25 10:52 | PCM.PHAPRO ---
Progress Troponin elevation WARFARIN DOSING PER PHARMACY (day) 1 2 3 4 5 6 RPh RTM NTV DFF DFF DFF DFF Date -Aug 21-Aug 22-Aug 23-Aug 24-Aug 25-Aug INR 1.04 1.04 1.06 1.31 1.54 2.41 INR change 0.02 0.25 0.23 0.87 Warf Dose 5 5 5 5 2.5+7.5 HOLD A/P -Therapeutic INR but large uptrend from previous level. Did have supplemental dose yesterday morning but should not be seeing the effects of that just yet. -Will hold today's dose. If pt discharges, recommend restarting warfarin 5mg daily starting 08/26/16 with close follow-up. -Pharmacy will continue to follow if pt stays overnight Ric Gill, PharmD Ric Gill Aug 25, 2016 10:52
--- NOTE | 2016-08-25 11:30 | NUR ---
Heparin gtt dc'd Heparin gtt dc'd this morning at 1110. Pt denies any indicators of bleeding.
--- NOTE | 2016-08-25 11:35 | NUR ---
NUTRITION ASSESSMENT: ASSESS: 75 YO male admitted for hypotension and hyponatremia. Pt with possible acute PE and acute e coli UTI with bacteremia. Pt with good PO intake since admit. PMHx: DM, HTN. LABS: Reviewed. Glu 134, Alb 3.2. MEDS: Reviewed. GI: BM x 1 (08/23) CURRENT WT: 72.8 kg. Admit wt: 76 kg. DIET: Diabetic. PO intake 100% EST. NEEDS: 6447-1527 kcals (25-30 kcals/kg BW), 75-90 g protein (1.0-1.2 g/kg BW) NUTRITION DIAGNOSIS: 1.) No nutritional diagnosis at this time. NUTRITION INTERVENTION: 1.) No nutritional intervention at this time. MONITOR / EVAL: PO intake, labs, nutritional status. Follow per low nutritional risk guidelines.
--- NOTE | 2016-08-25 15:50 | NUR ---
FRANCISCO JAVIER signed @ 1129 AM
--- NOTE | 2016-08-25 16:32 | PCM.PNMED ---
Subjective Date of Service Aug 25, 2016 Subjective denies any new issues/complaints Exam Vital Signs Vital Sign - Last Date Time Temp Pulse Resp B/P Pulse Ox O2 Delivery O2 Flow Rate FiO2 08/25/16 13:52 36.7 64 18 144/78 99 Room Air Intake and Output 08/24/16 08/24/16 08/25/16 Cumulative From/Thru 15:00 23:00 07:00 08/17/16 00:12 - 08/25/16 06:37 Intake Total 1636 ml 8003 ml 89993 ml Output Total 1750 ml 1700 ml 10850 ml Balance -114 ml 6303 ml 59929 ml Intake Oral 1300 ml 8003 ml 43836 ml IV Total 336 ml 86407 ml Output Urine Total 1750 ml 1700 ml 65547 ml # Voids 11 # Bowel Movements 1 0 9 Exam General: Alert, Cooperative, No Acute Distress Eyes: Scleral Anicteric Mouth: Mucous Membr Moist/[place] Neck: Supple Chest & Lungs: Chest Wall Normal, Clear to auscultation bilat Cardiovascular: Regular Rate/Rhythm Abdomen: Non-tender, Non-distended, Normoactive bowel tones, Soft Extremities: No cyanosis/clubbing/edema bilat Neurological: Grossly Neurologically Intact, Normal Speech IVs and Medications Medications Reviewed: Medications were reviewed in detail Lab and Diagnostics Result Diagram: 08/25/1651908/22/16 0530 Assessment & Plan 75-year-old male with past medical history of diabetes and hypertension, and alcohol use up until May of this year who presented with generalized weakness, dizziness and fall with associated increased thirst rigors chills and active fever 100. Patient was found to have hyponatremia and hypochloremia hypomagnesemia elevated d-dimer and a leukocytosis with left shift. Patient was admitted to the hospital for hypertension resulting in a fall for further workup. # Possible Acute Pulmonary embolism, POA, active -patient has no chest pain, sob -echo however is abnormal showing evidence or prior DC (no history of this), and moderately dilated RV, hypokenetic RV wall, mod pulmonary hypertension, suggesting possible PE -with echo findings and positive d dimmer decision was made to treat for acute PE -INR now therapeutic. Stop Heparin and continue with Coumadin (to be adjusted by pharmacy) -given rapid increase in INR plan is to keep patient another night to ensure INR does not significantly rise over night before going home. -plan on 3 month treatment, then change to asa # Acute E. Coli UTI with Bacteremia, present on admission, improving -he reported having intermittent dysuria -Patient was recently treated for urinary tract infection 1 month ago in the ED and received a signal dose of ceftriaxone and was discharged on by mouth Bactrim twice a day -due to resistance of urine bug to Unasyn and past use of ceftriaxone and Bactrim prior to coming to hospital Abx changed from Zosyn to Cefepime -appreciate ID consult. will f/u w/ recs -Cipro 500 mg p.o. b.i.d. with the intention of going about 10 days starting this evening and going through September 01. -urology consult followup as outpatient # Acute Sever Sepsis, source UTI and bacteremia, present on admission, resolved -temp 38.3, rr 24, pulse >90, WBC 12.2. with associated encephalopathy # confusion and encephalopathy secondary to sepsis, present on admission. resolved # Hypotension, present on admission, resolved -probable secondary to being on the dry side, secondary to polyuria, UTI, and blood pressure meds, PE, and or DC -continue with current BP meds and titrate up as needed # Chronic type 2 diabetes, POA, poorly controlled as outpatient. 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 will f/u w/ recs -per earlier notes by Dr. Li: "in discussion with [employer] pre owned sales consultant he want me not to use an IRLANDA-I at this time as EF > 40%, but to add a b-tomás (Toprol XL 25 qd)" # Possible recent Myocardial Infarction, poa, active -Lipitor 40, -continue asa 81 daily -continue Metoprolol 25 daily -follow up with Cardiology as out patient, Dr Owens, with plan for stress test in a few weeks # Anemia, Chronicity unknown, present on admission, stable - We will continue to monitor # Acute kidney injury, present on admission, resolved -Likely secondary to dehydration, and chronic poorly controlled diabetes resulting osmotic diuresis, polyuria and dehydration # Acute Hypomagnesemia. poa. resolved. # Hypertension -continue with Toprol XL, -hold Clonidine per earlier cardiology recommendations -continue with home dose IRLANDA-I and titrate as needed # Hyperlipidemia - change to lipitor 40 - Continue aspirin at 81 mg daily Dispo: likely home tomorrow pending stable INR VTE Prophylaxis: Sub-Q Enoxaparin Resuscitation Status: CPR: Attempt Resuscitation Time spent 40 min including reviewing patient's case and plan of care with his PCP (Dr. Pritchard) Mg Duke Aug 25, 2016 16:32
[2016-08-25] MEDS: Insulin GLARgine 100 Unit/mL Syringe SUBQ SCH (17:33)
[2016-08-26 01:03] VITALS: BP 169/83; PULSE 66; RESP 19; O2SAT 96
[2016-08-26 03:47] VITALS: PULSE 62
[2016-08-26 05:29] VITALS: BP 158/78; RESP 18; O2SAT 97
[2016-08-26 06:11] LABS: INR 1.99 ratio
--- NOTE | 2016-08-26 06:21 | NUR ---
Uneventful night/ warfarin education patient slept throughout the night denies pain/discomfort. patient teaching on warfarin, therapeutic INR, and the importance of keeping INR within goal to prevent strokes and PE's. patient states he understands the importance of staying an extra night in the hospital to make sure his INR is within goal. blood sugar at 0400 was 165. Will continue to monitor.
[2016-08-26 08:00] VITALS: PULSE 64
[2016-08-26] MEDS: MeTOProlol XL 25 mg ER24 Tablet PO SCH (09:02)
[2016-08-26] MEDS: Insulin LISPRO 300 Unit/3 mL Inj SUBQ SCH ×2 (09:08→12:00)
[2016-08-26 09:37] VITALS: BP 173/76; PULSE 63; O2SAT 98
[2016-08-26] MEDS ORDERED: INSU100V7 SUBQ (11:02)
[2016-08-26] MEDS ORDERED: CIPR-231 PO (11:02)
[2016-08-26] MEDS ORDERED: METO25TA99 PO (11:02)
[2016-08-26] MEDS ORDERED: WARF3TAB PO (11:02)
[2016-08-26] MEDS ORDERED: INSLIS SUBQ (11:02)
--- NOTE | 2016-08-26 11:07 | PCM.DIMED ---
Discharge Instructions Date of Service Aug 26, 2016 Dates of Hospitalization Aug 17, 2016 at 03:18 Discharge Diagnosis Discharge Diagnosis # Possible Acute Pulmonary embolism, present on admission. # Acute E. Coli urinary tract infection (UTI) and Bacteremia, present on admission, improving -strongly recommend outpatient urology consult followup # Acute Sever Sepsis, source UTI and bacteremia, present on admission. Resolved -temp 38.3, rr 24, pulse >90, WBC 12.2. with associated encephalopathy on admission. Resolved. # Acute confusion and encephalopathy secondary to sepsis, present on admission. Resolved # Hypotension, present on admission. Resolved # Chronic type 2 diabetes, present on admission and poorly controlled as outpatient. Improving -HbA1C 10.1 # Chronic congestive heart failure secondary to systolic dysfunction, present on admission. # Possible recent Myocardial Infarction, present on admission. -Follow up with Cardiology (Dr. Owens) as out patient # Anemia, Chronicity unknown, present on admission, stable # Acute kidney injury, present on admission. Resolved # Acute Hypomagnesemia, present on admission. Resolved # Hypertension, chronic. # Hyperlipidemia Diet Low fat, Low Sodium, Heart Healthy, Diabetic Activity No restrictions Call your provider Fever or Chills, Shortness of breath, Bleeding, Chest pain, Vomitting, Excessive diarrhea Patient Instructions Seek immediate medical attention if any new or worsening signs or symptoms occur. Follow-up plan 1. Followup at primary care provider's office on Monday08/29/16 to recheck your INR and adjust the Coumadin dose as needed 2. Followup with primary care provide in 1-2 weeks. 3. Follow-up appointment with Dr. Owens 09/30 ccheck in at 12:40 [facility] [address] [facility], [facility] [address] [place] [address] 4. Recommend outpatient urology followup and you may check with your primary care provide for referral Follow-up Provider: Bebeto Pritchard MD Provider: Sergo Owens MD, [place] Aug 26, 2016 11:07
--- NOTE | 2016-08-26 11:19 | NUR ---
Social Work: Discharge Data: Pt is on day 9 of hospitalization. EMR reviewed. D/C orders are in. No d/c planning needs at this time. BOBTAILER will continue to follow if needs arise. Assessment: Pt who is independent at baseline. Plan: Pt will d/c home via POV today. No d/c planning needs at this time. BOBTAILER will continue to follow if needs arise. CHAPIN Woods
--- NOTE | 2016-08-26 11:57 | PCM.PHAPRO ---
Progress WARFARIN DOSING PER PHARMACY [facility] RTM NTV DFF DFF DFF DFF DFF Date -Aug 21-Aug 22-Aug 23-Aug 24-Aug 25-Aug 26-Aug INR 1.04 1.04 1.06 1.31 1.54 2.41 1.99 INR change 0.02 0.25 0.23 0.87 -0.42 Warf Dose 5 5 5 5 2.5+7.5 HOLD 6 A/P -Suptherapeutic INR following held dose on 08/25 for acute increase in INR. Attribute increase to supplemental dose received on 08/24 but typical presentation is not this acute. -Will recommend warfarin 6mg for dispo given such an acute drom following held dose and duration of time it took to reach therapeutic level -Ric Gill,PharmD Ric Gill Aug 26, 2016 11:57
[2016-08-26 12:42] VITALS: BP 156/72; PULSE 70; RESP 16; O2SAT 98
--- NOTE | 2016-08-26 13:56 | NUR ---
Discharge IV discontinued fully intact by student RN. Discharge instructions explained to patient and spouse who verbalize understanding and agree to plan of care. Education provided to both patient and spouse in regards to Coumadin, when to obtain INR lab values, how to check blood sugars and when to administer insulin. Patient ambulated off of unit to personal car.
--- NOTE | 2016-08-26 16:56 | PCM.DC.MED ---
Discharge Summary Date of Service Aug 26, 2016 Dates of Hospitalization Date of Hospital Admission Aug 17, 2016 at 03:18 Date of Discharge: Aug 26, 2016 Providers: Admitting Physician: Gabino Jones MD Primary Care Physician: Bebeto Pritchard MD Attending Physician: Gabino Jones MD Diagnosis at Time of Discharge Diagnosis at Time of Discharge # Possible Acute Pulmonary embolism, present on admission. # Acute E. Coli urinary tract infection (UTI) and Bacteremia, present on admission, improving -strongly recommend outpatient urology consult followup # Acute Sever Sepsis, source UTI and bacteremia, present on admission. Resolved -temp 38.3, rr 24, pulse >90, WBC 12.2. with associated encephalopathy on admission. Resolved. # Acute confusion and encephalopathy secondary to sepsis, present on admission. Resolved # Hypotension, present on admission. Resolved # Chronic type 2 diabetes, present on admission and poorly controlled as outpatient. Improving -HbA1C 10.1 # Chronic congestive heart failure secondary to systolic dysfunction, present on admission. # Possible recent Myocardial Infarction, present on admission. -Follow up with Cardiology (Dr. Owens) as out patient # Anemia, Chronicity unknown, present on admission, stable # Acute kidney injury, present on admission. Resolved # Acute Hypomagnesemia, present on admission. Resolved # Hypertension, chronic. # Hyperlipidemia Consultations 1. Cardiology (Dr. Owens) 2. ID (Dr. Damon) Procedures XRay, CTs & MRIs Date of Service: 08/17/1653 PROCEDURE: X-RAY CHEST ONE VIEW, PORTABLE ([id number]) IMPRESSION: No acute disease. Dictated by: Mickey Villarreal M.D. on 08/17/2016 at 8:40 Approved by: Mickey Villarreal M.D. on 08/17/2016 at 8:41 Date of Service: 08/17/1653 PROCEDURE: CT CERVICAL SPINE WITHOUT CONTRAST ([id number]) IMPRESSION: 1. No acute traumatic injury to cervical spine. 2. Mild degenerative disc disease and severe bilateral facet arthropathy in cervical spine. No significant discrepancy with the date night sitter radiology preliminary report. Dictated by: Carlie Phan M.D. on 08/17/2016 at 9:15 Approved by: Carlie Phan M.D. on 08/17/2016 at 9:21 Date of Service: 08/17/16 0435 PROCEDURE: CT ANGIO CHEST PULMONARY EMBOLISM ([id number]) IMPRESSION: 1. Possible small pulmonary embolus in the right posterior basal segmental artery. 2. There is a moderate-sized hiatal hernia. There is concentric thickening at the gastroesophageal junction. Recommend esophagram or upper endoscopy for further evaluation. 3. Mildly enlarged particularly lymph nodes. This finding is nonspecific and requires clinical correlation and follow up. Dictated by: Carlie Phan M.D. on 08/17/2016 at 9:03 Approved by: Carlie Phan M.D. on 08/17/2016 at 9:14 Cardiac Echo Impression Date of Service: 08/18/16 1048 Echocardiogram Report Interpretation Summary The left ventricle is normal in size. The ejection fraction is estimated to be 45-50%. There appears to be severe hypokinesis to akinesis of inferior wall, base to mid septum, distal anterolateral and base to mid posterolateral wall. The right ventricle is moderately dilated. Right ventricular systolic function is mild to moderately reduced. The right ventricular free wall is severely hypokinetic. There is mild to moderate tricuspid regurgitation. The right ventricular systolic pressure is estimated at 58 mmHg assuming a right atrial pressure of 15 mm Hg. There is moderate pulmonary hypertension. Reading Physician:PM Other Diagnostics Date of Service: 08/17/16 0608 PROCEDURE: US VENOUS LEG DUPLEX BILATERAL IMPRESSION: No DVT film bilaterally over the lower extremities. Dictated by: Geovany Anthony M.D. on 08/17/2016 at 9:13 Approved by: Geovany Anthony M.D. on 08/17/2016 at 9:14 Brief History 75-year-old male with past medical history of diabetes and hypertension, and alcohol use up until May of this year who presented with generalized weakness, dizziness and fall with associated increased thirst rigors chills and active fever 100. Patient was found to have hyponatremia and hypochloremia hypomagnesemia elevated d-dimer and a leukocytosis with left shift. Patient was admitted to the hospital for hypertension resulting in a fall for further workup. Hospital Course # Possible Acute Pulmonary embolism, POA, active -patient has no chest pain, sob -echo however is abnormal showing evidence or prior NE (no history of this), and moderately dilated RV, hypokenetic RV wall, mod pulmonary hypertension, suggesting possible PE -with echo findings and positive d dimmer decision was made to treat for acute PE -INR now therapeutic. Stop Heparin and continue with Coumadin (to be followed at PCP clinic this coming Monday) -plan on 3 month treatment, then change to asa # Acute E. Coli UTI with Bacteremia, present on admission, improving -he reported having intermittent dysuria -Patient was recently treated for urinary tract infection 1 month ago in the ED and received a signal dose of ceftriaxone and was discharged on by mouth Bactrim twice a day -due to resistance of urine bug to Unasyn and past use of ceftriaxone and Bactrim prior to coming to hospital Abx changed from Zosyn to Cefepime -appreciate ID consult. will f/u w/ recs -Cipro 500 mg p.o. b.i.d. with the intention of going about 10 days starting this evening and going through September 01. -urology consult followup is recommended as outpatient # Acute Sever Sepsis, source UTI and bacteremia, present on admission, resolved -temp 38.3, rr 24, pulse >90, WBC 12.2. with associated encephalopathy # confusion and encephalopathy secondary to sepsis, present on admission. resolved # Hypotension, present on admission, resolved and now hypertensive -probable secondary to being on the dry side, secondary to polyuria, UTI, and blood pressure meds, PE, and or NE -continue with current BP meds and titrate up as needed # Chronic type 2 diabetes, POA, poorly controlled as outpatient. improving -HbA1C 10.1 -Basal insulin: Lantus, reduce to 18 change to dinner time -correction insulin; Humalog changed to low dose correction scale -nutritional insulin; increase to 2 ac am, 5 ac lunch, and 5 ac dinner 2-4-4 -c/w home dose metformin and sitagliptin -patient is new to insulin, teaching # Chronic CHF secondary to systolic dysfunction, poa, active -echo with 45-50% ef, secondary to ischemic cardiomyopathy -appreciate cardiology consult. will f/u w/ recs # Possible recent Myocardial Infarction, poa, active -Lipitor 40, -continue asa 81 daily -continue Metoprolol 25 daily -follow up with Cardiology as out patient, Dr Owens, with plan for stress test in a few weeks # Anemia, Chronicity unknown, present on admission, stable - We will continue to monitor # Acute kidney injury, present on admission, resolved -Likely secondary to dehydration, and chronic poorly controlled diabetes resulting osmotic diuresis, polyuria and dehydration # Acute Hypomagnesemia. poa. resolved. # Hypertension -continue with Toprol XL, -continue Clonidine given poor BP control -continue with home dose IRLANDA-I and titrate as needed # Hyperlipidemia - change to lipitor 40 - Continue aspirin at 81 mg daily by day of discharge lungs CTA bilaterally. CV: RRR. Exam Vital Signs (Last) Date Time Temp Pulse Resp B/P Pulse Ox O2 Delivery O2 Flow Rate FiO2 08/26/16 12:42 36.5 70 16 156/72 98 Room Air Test 08/17/16 00:40 08/17/16 00:42 08/17/16 01:00 08/17/16 01:26 D-Dimer 2.58mg/L FEU (<0.50) Hemoglobin A1c 10.1% (4.8-5.6) Total Bilirubin 0.6mg/dL (0.0-1.2) Aspartate Amino Transf (AST/SGOT) 12U/L (0-50) Alanine Aminotransferase (ALT/SGPT) 13U/L (0-44) Alkaline Phosphatase 80U/L (25-160) Total Protein 6.1g/dL (6.4-8.4) Albumin 3.2g/dL (3.4-5.0) Acetaminophen Level < 15.0ug/mL Rx (10-25) Alcohols < 10mg/dL (0-10) Lactic Acid Level 1.6mmol/L (0.4-2.0) Test 08/17/16 04:00 08/17/16 10:48 08/17/16 14:09 08/20/16 04:50 Thyroid Stimulating Hormone (TSH) 2.900uIU/mL (0.450-4.500) Free Thyroxine 1.06ng/dL (0.82-1.77) Urine Color Yellow (YELLOW) Urine Appearance Slightly cloudy Urine pH 5.5 (5.0-8.0) Urine Specific [place] 1.015 (1.003-1.035) Urine Protein 100mg/dL (NEG,TRACE) Urine Glucose (UA) 100mg/dL (NEGATIVE) Urine Ketones Negativemg/dL (NEGATIVE) Urine Occult Blood Large (NEGATIVE) Urine Nitrite Positive (NEGATIVE) Urine Bilirubin Negative (NEGATIVE) Urine Urobilinogen Normalmg/dL (NORMAL) Urine Leukocyte Esterase Moderate (NEGATIVE) Urine RBC 3-10/hpf (0-2) Urine WBC >50/hpf (0-5) Urine Epithelial Cells Occasional/hpf (NONE-MOD) Urine Crystals None seen (NONE SEEN) Urine Bacteria Many/hpf (NONE-FEW) Urine Hyaline Casts None/lpf (NONE) Urine Granular Casts None seen (NONE SEEN) Urine Waxy Casts None seen (NONE SEEN) Urine Red Blood Cell Casts None seen (NONE SEEN) Urine White Blood Cell Casts None seen (NONE SEEN) Urine Mucus None seen (None Seen) Urine Trichomonas None seen (NONE SEEN) Urine Yeast None (NONE SEEN) Urine Culture Reflexed Indicated Urine Random Creatinine 67mg/dL (22-328) Urine Random Sodium 57mEq/L Urine Opiates Screen Negative Urine Methadone Screen Negative Urine Barbiturates Screen Negative Urine Amphetamines Screen Negative Urine Benzodiazepines Screen Negative Urine Cocaine Metabolite Screen Negative Urine Cannabinoids Screen Negative Procalcitonin 0.54ng/mL (0.00-0.08) Test 08/20/16 16:52 08/22/16 05:30 08/25/16 10:55 08/26/16 05:22 Total Creatine Kinase 38U/L (21-232) Creatine Kinase MB 1.1ng/mL (0.0-10.4) Creatine Kinase MB % % (0.0-5.0) Troponin T < 0.010ug/L (0.0-0.011) White Blood Count 9.5th/mm3 (3.8-10.1) Red Blood Count 3.58mil/mm3 (4.40-5.80) Mean Corpuscular Volume 86.9fL (81-100) Mean Corpuscular Hemoglobin 27.7pg (27.0-35.0) Mean Corpuscular Hemoglobin Concent 31.8% (32.0-37.0) Red Cell Distribution Width 14.5% (12.3-15.4) Platelet Count 311bil/L (150-400) Neutrophils (%) (Auto) 75% (40-74) Lymphocytes (%) (Auto) 11% (14-46) Monocytes (%) (Auto) 9% (4-12) Eosinophils (%) (Auto) 2% (0-5) Basophils (%) (Auto) 1% (0-3) Band Neutrophils % 1% (1-5) Metamyelocytes % 1% (0-0) Sodium Level 141mEq/L (134-144) Potassium Level 3.6mEq/L (3.5-5.2) Chloride Level 102mEq/L (97-108) Carbon Dioxide Level 26mmol/L (18-29) Blood Urea Nitrogen 9mg/dL (8-27) Creatinine 0.79mg/dL (0.76-1.27) Estimat Glomerular Filtration Rate 102mL/min (>59) Glucose Level 134mg/dL (60-99) Calcium Level 8.4mg/dL (8.5-10.1) Magnesium Level 2.1mg/dL (1.6-2.6) Activated Partial Thromboplast Time 77.3sec (22.8-33.0) Hemoglobin 9.1g/dL (13.8-17.2) Hematocrit 28.6% (41.0-50.0) Prothrombin Time 21.6sec (8.1-12.5) Prothromb Time International Ratio 1.99ratio Discharge Medications Discharge Medications Aspirin (Aspirin) 325 Mg Tablet 325 MG PO DAILY (Reported) Cinnamon Bark (Cinnamon) 500 Mg Capsule 2 TAB PO BID (Reported) Ciprofloxacin (Cipro) 500 Mg Tablet 500 MG PO BID Prescribed by: ALBINO FERREIRA MD Clonidine (Clonidine) 0.1 Mg Tablet 0.2 MG PO HS (Reported) Ergocalciferol (Vitamin D2) (Vitamin D2) 2,000 Unit Tablet 2,000 UNIT PO DAILY ( Reported) Fosinopril Sodium (Fosinopril Sodium) 20 Mg Tablet 20 MG PO DAILY (Reported) Insulin Glargine (Lantus U100 Insulin Vial) 100 Unit/Ml Vial 18 UNIT SUBQ DAILYWD Prescribed by: ALBINO FERREIRA MD Insulin Human Lispro (HumaLOG U100 Insulin Vial) 100 Unit/Ml Unit 0 UNIT SUBQ WMHS Check blood sugars before meals and at bedtime. Use correction factor only before meals. Blood Sugar Lispro Correction: <151, 0 units; 151-175, 1 unit; 176-200, 2 units; 201-225, 3 units; 226-250, 4 units; 251-275, 5 units; 276-300 , 6 units; 301-325, 7 units; 326-350, 8 units; 351-375, 9 units; 376-400, 10 units; >400, 12 units. Prescribed by: ALBINO FERREIRA MD Metformin HCl (Metformin HCl ER) 1,000 Mg [id number] 1,000 MG PO BID (Reported) Metoprolol Succinate ER (Metoprolol Succinate ER) 25 Mg Tab.er.24h 25 MG PO DAILY Prescribed by: ALBINO FERREIRA MD Multivitamin (Multi Vitamin Daily) 1 Each Tablet 1 EACH PO DAILY (Reported) Pravastatin (Pravastatin) 40 Mg Tablet 40 MG PO DAILY (Reported) Sitagliptin Phos (Januvia) 25 Mg Tablet 50 MG PO DAILY (Reported) Ubidecarenone (Coq-10) 100 Mg Capsule 100 MG PO BID (Reported) Warfarin Sodium (Coumadin) 3 Mg Tablet 6 MG PO ONCE@17 Prescribed by: ALBINO FERREIRA MD As needed Sildenafil Citrate (Viagra) 100 Mg Tablet 100 MG PO UD PRN PRN ED (Reported) Followup Plan Disposition: Home Follow-up plan 1. Followup at primary care provider's office on Monday08/29/16 to recheck your INR and adjust the Coumadin dose as needed 2. Followup with primary care provide in 1-2 weeks. 3. Follow-up appointment with Dr. Owens 09/30 [facility] in at 12:40 [facility] [address] [place], [place] [id number] 4. Recommend outpatient urology followup and you may check with your primary care provide for referral Discharge Diet: Low fat, Low Sodium, Heart Healthy, Diabetic Discharge Activity: No restrictions Patient Instructions Seek immediate medical attention if any new or worsening signs or symptoms occur. Follow-up Provider: Bebeto Pritchard MD Provider: Sergo Owens MD Time spent 35 min copies to: Bebeto Pritchard MD; Sergo Owens MD, Masoud Aug 26, 2016 16:56
== END 2016-08-26 13:57 | disposition home or self-care (01) | DRG 871 ==
LOC: SED 00:07 → MPC 03:18
PROVIDERS: ADMIT Family Medicine; ATTEND Family Medicine
DX: A41.51 Sepsis due to Escherichia coli [E. coli] (principal); I26.99 Other pulmonary embolism without acute cor pulmonale; G93.49 Other encephalopathy; R65.21 Severe sepsis with septic shock; N39.0 Urinary tract infection, site not specified; N17.9 Acute kidney failure, unspecified; E87.1 Hypo-osmolality and hyponatremia; I50.22 Chronic systolic (congestive) heart failure; E86.0 Dehydration; I25.2 Old myocardial infarction; E83.42 Hypomagnesemia; D64.9 Anemia, unspecified; E11.65 Type 2 diabetes mellitus with hyperglycemia; Z79.84 Long term (current) use of oral hypoglycemic drugs; I10 Essential (primary) hypertension; E78.5 Hyperlipidemia, unspecified